=== PATIENT | female | born 1990 | race Caucasian/White ===

== ENCOUNTER 2019-11-25 15:15 | Inpatient (IN) | payer OTHER ==
[2019-11-25] MEDS ORDERED: CITRIC ACID/SODIUM CITRATE 30 ML UNIT-DOSE CUP PO ONE (15:55)
[2019-11-25] MEDS ORDERED: BENZOCAINE 28 GM HEMORRHOIDAL OINTMENT RC PRN (15:57)
[2019-11-25] MEDS ORDERED: diphenhydrAMINE HCL 25 MG CAPSULE (FP) PO PRN (15:57)
[2019-11-25] MEDS ORDERED: METHYLERGONOVINE MALEATE 0.2 MG/1 ML AMP IM PRN (15:57)
[2019-11-25] MEDS ORDERED: BENZOCAINE 20% 57 GM BOTTLE TP PRN (15:57)
[2019-11-25] MEDS ORDERED: IBUPROFEN 800 MG/8 ML IJ IVPB PRN (15:57)
[2019-11-25] MEDS ORDERED: ACETAMINOPHEN 325 MG TABLET (FP) PO PRN (15:57)
[2019-11-25] MEDS ORDERED: WITCH HAZEL 50% (TUCKS) 40 PAD/JAR PAD TP PRN (15:57)
[2019-11-25] MEDS ORDERED: ELECTROLYTE-148 SOLN 1,000 ML IV SCH (16:00)
[2019-11-25] MEDS ORDERED: OXYTOCIN 20 UNITS in 0.9% NS 20 UNIT/1,000 ML INFUS.BAG IV SCH (16:00)
--- NOTE | 2019-11-25 16:16 | HP ---
Past Medical History - Primary Care Physician PCP:: Chayo William - Admission Chief Complaint: Spontaneous rupture of membranes. breech. iup at 40 week History of Present Illness: 29 yo PO with Crescencio Breech position for primary section with spontaneous rupture of membranes and active labor History Source: Patient Limitations to Obtaining History: No Limitations - Past Medical History ...: 4 ...Para: 0 ...Spon : 1 ...Induced : 2 - Past Surgical History Hx Myomectomy: No Hx Transabdominal Cerclage: No Additional Surgical History: Ectopic - Smoking History Smoking history: Never smoked Have you smoked in the past 12 months: No Aproximately how many cigarettes per day: 0 - Alcohol/Substance Use Hx Alcohol Use: No History of Substance Use: reports: None - Social History History of Recent Travel: No Home Medications - Allergies Allergies/Adverse Reactions: Allergies Allergy/AdvReac Type Severity Reaction Status Date / Time No Known Allergies Allergy Verified 11/25/19 16:46 - Home Medications Home Medications: Ambulatory Orders Vitamins (Sjr) - 1 tab PO DAILY 11/25/19 Review of Systems - Review of Systems Constitutional: reports: No Symptoms Eyes: reports: No Symptoms HENT: reports: No Symptoms Neck: reports: No Symptoms Cardiovascular: reports: No Symptoms Respiratory: reports: No Symptoms Gastrointestinal: reports: Abdominal Pain Genitourinary: reports: No Symptoms Breasts: reports: No Symptoms Reported Musculoskeletal: reports: No Symptoms Integumentary: reports: No Symptoms Neurological: reports: No Symptoms Endocrine: reports: No Symptoms Hematology/Lymphatic: reports: No Symptoms Psychiatric: reports: No Symptoms Problem List - Problems (1) Breech presentation of fetus Code(s): O32.1XX0 - MATERNAL CARE FOR BREECH PRESENTATION, UNSP (2) 39 weeks gestation of Code(s): Z3A.39 - 39 WEEKS GESTATION OF (3) Labor and delivery affected by breech presentation Code(s): O32.1XX0 - MATERNAL CARE FOR BREECH PRESENTATION, UNSP Assessment/Plan iup at 39 week breech in labor srom Plan Section
[2019-11-25] MEDS ORDERED: morphine SULFATE/Preservative Free 0.5 MG/ML (1cc Syringe) ONE (17:24)
[2019-11-25] MEDS ORDERED: MIDAZOLAM HCL 2 MG/2 ML SINGLE DOSE VIAL ONE (17:37)
--- NOTE | 2019-11-25 18:46 | OP ---
Operative Note - Note: Operative Date: 11/25/19 Pre-Operative Diagnosis: Michaelle Breech. spontaneous rupture of membranes. IUP at 39.3 week. Active Labor Operation: Primary Low Transverse Section Findings: Live female michaelle breech Post-Operative Diagnosis: Same as Pre-op Surgeon: Chayo William Sales Service Route Manager: Charlie Frost Anesthesia: Spinal Estimated Blood Loss (mls): 600 Operative Report Dictated: Yes
[2019-11-25 18:56] LABS: CORD BASE EXCESS -2.6 mmol/L (0-2); CORD BASE EXCESS -3.2 mmol/L (0-2); CORD HCO3 23.6 mmHg (20-29); CORD HCO3 23.9 mmHg (20-29); CORD PCO2 45.8 mmHg (30-78); CORD PCO2 50.8 mmHg (30-78); CORD pH 7.291 (7.14-7.44); CORD pH 7.33 (7.14-7.44)
[2019-11-25 19:02] VITALS: BMI 30.7
[2019-11-25] MEDS ORDERED: OXYTOCIN 20 UNITS in 0.9% NS 20 UNIT/1,000 ML INFUS.BAG IV ONE (19:15)
[2019-11-25 19:30] LABS: BASO % 0.2 % (0-2.0); EOS % 0.2 % (0-4.5); HEMATOCRIT 36.9 % (32.4-45.2); HEMOGLOBIN 12.1 GM/dL (10.7-15.3); LYMPH % 16.6 % (8-40); MCH 28.8 pg (25.7-33.7); MCHC 32.9 g/dl (32.0-36.0); MEAN CELL VOLUME 87.6 fl (80-96); MEAN PLT VOLUME 12.1 fl (7.5-11.1); MONO % 5.6 % (3.8-10.2); NEUT % 77.4 % (42.8-82.8); PLATELET COUNT 85 K/MM3 (134-434); RBC 4.21 M/mm3 (3.60-5.2); RDW 14.3 % (11.6-15.6); WHITE BLOOD COUNT 11.1 K/mm3 (4.0-10.0)
[2019-11-25 19:41] LABS: INR 0.96 (0.83-1.09); PROTHROMBIN TIME (PATIENT) 11.3 SEC (9.7-13.0)
[2019-11-25 19:44] LABS: ACTIVATED PTT 24.9 SECONDS (25.2-36.5)
[2019-11-25 19:47] LABS: BLOOD UREA NITROGEN 9.6 mg/dL (7-18); CREATININE 0.6 mg/dL (0.55-1.3); POTASSIUM 3.9 mmol/L (3.5-5.1)
--- NOTE | 2019-11-26 07:47 | PN ---
Progress Note (SOAP) - Subjective Chief Complaint: Pt doing well - Current Medications Current Medications: Active Medications Acetaminophen (Tylenol -) 650 mg PO Q4H PRN PRN Reason: FEVER Benzocaine (Americaine 20% [place] -) 1 spray TP PRN PRN PRN Reason: Pain - Topical Benzocaine (Americaine Ointment -) 1 applic RC PRN PRN PRN Reason: Pain - Topical Bisacodyl (Dulcolax Suppository -) 10 mg MA PRN PRN PRN Reason: CONSTIPATION Diphenhydramine HCl (Benadryl -) 25 mg PO Q6H PRN PRN Reason: FOR ITCHING Hydromorphone HCl (Dilaudid -) 4 mg PO Q4H PRN PRN Reason: PAIN LEVEL 7 - 10 Stop: 11/27/19 09:59 Parenteral Electrolytes (Plasma-Lyte 148 -) 1,000 mls @ 125 mls/hr IV [facility] Last Admin: 11/25/19 15:45 Dose: 125 mls/hr Documented by: Oxytocin/Sodium Chloride (Normal Saline+20 Units Oxytocin -) 20 unit in 1,000 mls @ 125 mls/hr IV [facility] Last Admin: 11/25/19 19:00 Dose: 125 mls/hr Documented by: Ibuprofen (Motrin -) 600 mg PO Q4H PRN PRN Reason: FEVER Ibuprofen (Caldolor Injection -) 800 mg IVPB Q6H PRN PRN Reason: Fever - If PO not effective. Methylergonovine Maleate (Methergine Injection -) 0.2 mg IM Q4H PRN PRN Reason: EXCESSIVE BLEEDING Oxycodone HCl (Roxicodone -) 5 mg PO Q4H PRN PRN Reason: PAIN LEVEL 1 - 3 Oxycodone HCl (Roxicodone -) 10 mg PO Q4H PRN PRN Reason: PAIN LEVEL 6-10 Senna/Docusate Sodium (Pericolace -) 2 tablet PO HS PRN PRN Reason: CONSTIPATION Simethicone (Mylicon -) 80 mg PO Q4H PRN PRN Reason: GAS Witch Umu/Glycerin (Tucks Pads -) 1 pad TP PRN PRN PRN Reason: Pain - Topical - Objective Vital Signs: Vital Signs Temperature 98.3 F 11/26/19 06:00 Pulse Rate 78 11/26/19 06:00 Respiratory Rate 18 11/26/19 06:00 Blood Pressure 118/68 11/26/19 06:00 O2 Sat by Pulse Oximetry (%) 980 H 11/25/19 20:00 Constitutional: Yes: Well Nourished, No Distress Gastrointestinal: Yes: WNL, Soft, Abdomen, Obese ....Post : Yes: Uterus firm, Uterus non-tender Musculoskeletal: Yes: WNL Extremities: Yes: WNL Wound/Incision: Yes: Steri Strips, Dressing Removed Neurological: Yes: WNL, Alert, Oriented Labs Lab Results: CBCD WBC 11.1 K/mm3 (4.0-10.0) H 11/25/19 19:00 RBC 4.21 M/mm3 (3.60-5.2) 11/25/19 19:00 Hgb 12.1 GM/dL (10.7-15.3) 11/25/19 19:00 Hct 36.9 % (32.4-45.2) 11/25/19 19:00 MCV 87.6 fl (80-96) 11/25/19 19:00 MCHC 32.9 g/dl (32.0-36.0) 11/25/19 19:00 RDW 14.3 % (11.6-15.6) 11/25/19 19:00 Plt Count 85 K/MM3 (134-434) L 11/25/19 19:00 MPV 12.1 fl (7.5-11.1) H 11/25/19 19:00 CMP Sodium 141 mmol/L (136-145) 11/25/19 19:00 Potassium 3.9 mmol/L (3.5-5.1) 11/25/19 19:00 Chloride 108 mmol/L (98-107) H 11/25/19 19:00 Carbon Dioxide 23 mmol/L (21-32) 11/25/19 19:00 Anion Gap 11 MMOL/L (8-16) 11/25/19 19:00 BUN 9.6 mg/dL (7-18) 11/25/19 19:00 Creatinine 0.6 mg/dL (0.55-1.3) 11/25/19 19:00 Random Glucose 76 mg/dL (74-106) 11/25/19 19:00 Calcium 9.0 mg/dL (8.5-10.1) 11/25/19 19:00 Problem List - Problems (1) Breech presentation of fetus Code(s): O32.1XX0 - MATERNAL CARE FOR BREECH PRESENTATION, UNSP (2) 39 weeks gestation of Code(s): Z3A.39 - 39 WEEKS GESTATION OF (3) Labor and delivery affected by breech presentation Problems reviewed: Yes Code(s): O32.1XX0 - MATERNAL CARE FOR BREECH PRESENTATION, UNSP (4) Status post primary low transverse section Problems reviewed: Yes Code(s): Z98.891 - HISTORY OF UTERINE SCAR FROM PREVIOUS SURGERY Assessment/Plan POD 1 SP CS Stable Plan OOB DC home in AM if stable
--- NOTE | 2019-11-26 08:03 | PN ---
Progress Note (short form) - Note Progress Note: Anesthesia Post op/pain Pt seen and examined S:Alert and awake comfortable O: Vital Signs Temperature 98.3 F 11/26/19 06:00 Pulse Rate 78 11/26/19 06:00 Respiratory Rate 18 11/26/19 06:00 Blood Pressure 118/68 11/26/19 06:00 O2 Sat by Pulse Oximetry (%) 980 H 11/25/19 20:00 CBC, BMP 11/25/19 19:00 11/25/19 19:00 Current Active Problems 39 weeks gestation of (Acute) Breech presentation of fetus (Acute) Labor and delivery affected by breech presentation (Acute) Status post primary low transverse section (Acute) A/P: s/p c section Doing well post op Continue current care Ashwin Jerez MD
[2019-11-26 08:31] LABS: HEMATOCRIT 33.1 % (32.4-45.2); HEMOGLOBIN 11.1 GM/dL (10.7-15.3); MCH 29.4 pg (25.7-33.7); MCHC 33.5 g/dl (32.0-36.0); MEAN CELL VOLUME 87.6 fl (80-96); MEAN PLT VOLUME 11.8 fl (7.5-11.1); PLATELET COUNT 68 K/MM3 (134-434); RBC 3.78 M/mm3 (3.60-5.2); RDW 14.2 % (11.6-15.6)
[2019-11-26] MEDS ORDERED: HYDROmorphone HCL 2 MG TABLET PO PRN (10:00)
[2019-11-26] MEDS ORDERED: oxyCODONE HCL 5 MG TABLET PO PRN (10:00)
[2019-11-26] MEDS: IBUPROFEN 600 MG TABLET (FP) PO PRN ×3 (11:13→23:42)
[2019-11-26] MEDS: SIMETHICONE 80 MG TAB.CHEW (FP) PO PRN ×2 (15:22→23:37)
[2019-11-26] MEDS ORDERED: BISACODYL 10 MG SUPP.RECT PR PRN (15:57)
--- NOTE | 2019-11-26 16:34 | OP ---
DATE OF OPERATION: 11/25/2019 PREOPERATIVE DIAGNOSIS: Michaelle breech, spontaneous rupture of membranes, intrauterine at 39.3 weeks, active labor. OPERATION: Primary low transverse section. POSTOPERATIVE DIAGNOSIS: Live female delivered in michaelle breech position. Michaelle breech, spontaneous rupture of membranes, intrauterine at 39.3 weeks, active labor. SURGEON: Frandy William MD. ORTHOPEDICALLY IMPAIRED TEACHER: JOI King. MD unavailable. ANESTHESIA: Spinal. ESTIMATED BLOOD LOSS: 600 mL. PROCEDURE: Patient was taken to the operating room, placed in supine position. Prepped and draped in usual sterile fashion. Timeout was performed in accordance with hospital regulation. A Pfannenstiel skin incision was made with the scalpel. Cautery was then used to go through layers of abdominal wall to the level of the fascia. Fascia was cut in the midline and cautery was then used to open the fascia in a smiley fashion. Ernie was then used to bluntly and sharply dissect the rectus muscles off the fascia. Muscle was split in the midline. Peritoneal cavity was entered and carried up and down with bladder retractor in placed. Scalpel was then used to make a low transverse uterine incision. Incision was carried upwards with the use of bandage scissors. A michaelle breech live female infant was delivered. Shoulders were delivered without difficulty. Head was also delivered without difficulty. Cord was clamped and cut. Infant was handed to behavior clinician. Cord blood obtained. Cord pH obtained. Placenta was spontaneously removed from uterus. Uterus exteriorized and cleaned with clean lap pads. Uterine incision then closed using 0 Vicryl suture, 1st layer continuous and locking, 2nd layer imbricating 1st layer. Hemostasis was achieved using [id number] sutures. Tubes and ovaries noted to be normal. Uterus interiorized. Abdominal cavity cleaned with clean lap pads. Abdominal sweep done. Peritoneal cavity was then closed using 0 Biosyn suture . Fascia then closed using 0 Vicryl sutures in 2 parts. Muscle had been approximated using 0 Biosyn suture. Subcutaneous was approximated using 0 Biosyn suture with interrupted sutures. Skin was then closed using 3-0 Vicryl in subcuticular fashion. The wound was washed and dressed. Patient tolerated procedure well. Estimated blood loss 600 mL. FRANDY WILLIAM M.D. DEREK/[id number]
[2019-11-26] MEDS: oxyCODONE HCL 5 MG TABLET PO PRN (23:38)
[2019-11-27] MEDS: IBUPROFEN 600 MG TABLET (FP) PO PRN ×2 (07:49→12:27)
[2019-11-27] MEDS: SIMETHICONE 80 MG TAB.CHEW (FP) PO PRN ×2 (07:50→12:26)
[2019-11-27] MEDS: oxyCODONE HCL 5 MG TABLET PO PRN ×2 (07:50→12:27)
--- NOTE | 2019-11-27 08:26 | DS ---
Physical Exam-AIR BRUSH DECORATOR Vital Signs: Vital Signs Temperature 98.6 F 11/26/19 22:00 Pulse Rate 96 H 11/26/19 22:00 Respiratory Rate 18 11/26/19 22:00 Blood Pressure 122/79 11/26/19 22:00 O2 Sat by Pulse Oximetry (%) 95 11/26/19 14:00 Constitutional: Yes: Well Nourished Eyes: Yes: Conjunctiva Clear HENT: Yes: Atraumatic Neck: Yes: Supple Cardiovascular: Yes: Regular Rate and Rhythm Respiratory: Yes: Regular Gastrointestinal: Yes: Normal Bowel Sounds External Genitalia: Yes: Normal Vaginal Exam: Yes: Normal Cervix: Yes: Normal Uterus: Yes: Firm ....Post : Yes: Uterus firm, Slight lochia rubra Wound/Incision: Yes: Well Approximated, Steri Strips (in place) Neurological: Yes: Alert, Oriented ...Motor Strength: WNL Psychiatric: Yes: Alert, Oriented Labs: CBC, BMP 11/26/19 07:55 11/25/19 19:00 Delivery - Delivery Type of Anesthesia: Spinal EBL (cc): 600 Delivery, Single - Stages of Labor Date 1st Stage Initiatied: 11/25/19 Time 1st Stage Initiated: 15:00 Date of Delivery: 11/25/19 Time of Delivery: 17:46 Time Placenta Delivered: 17:50 - Condition of Infant Food Service Representative/Car Shakeout Operator Present: Yes Name: Eric Hightower Infant Gender: Female Weight: 7 lb 3 oz Total Hours ROM (Hrs/Mins): 3Hrs/50Mins - 1 Minute Total Score: 9 5 Minutes Total Score: 9 - [place] Feeding Plan Initial Plan: Exclusive throughout hospitalization Discharge Summary Problems reviewed: Yes Reason For Visit: Current Active Problems 39 weeks gestation of (Acute) Breech presentation of fetus (Acute) Labor and delivery affected by breech presentation (Acute) Status post primary low transverse section (Acute) Procedures: Principal: Primary Low Transverse Hospital Course: Routine post op care Health Concerns: None Plan of Treatment: Ambulation Analgesia as needed F/U with MD in 2 weeks Goals: Resume regular activities in 6 weeks Condition: Good - Instructions Diet, Activity, Other Instructions: Physical activity Resume your normal everyday activity as tolerated no heavy lifting or exercise until seen by your surgeon. You may walk unlimited bere of and climb stairs. You may resume driving the car when you feel safe and comfortable behind the wheel. No sexual activity as instructed. Wound care If you have a bandage, leave it on, and keep dry for 48-72 hours. After that time discard the outer bandage. If they are tapes on the skin under the out of bandage leave them in place. They will peel off in the next 7 to 10 days. Do Not Peel them off. You may shower the day after surgery. If there are tapes present on the skin, you may shower over them. Diet There are no dietary restrictions. Eat healthy, high-fiber foods. Drink 6 to 8 glasses of liquid each day. This will assist in keeping your bowels are regular. Pain management You may take Tylenol or acetaminophen or Ibuprofen (for example, Motrin, Advil etc.) from my pain prescription medication is ordered should be taken as prescribed for moderate to severe pain. Call MD for any of the following: Severe pain not relieved by medication Fever of 101 or higher Excessive bleeding or drainage on dressing Inability to urinate Disposition: HOME - Home Medications Comprehensive Discharge Medication List: Ambulatory Orders Vitamins (Sjr) - 1 tab PO DAILY 11/25/19 Ibuprofen [Motrin -] 600 mg PO QID #28 tablet 11/26/19 Oxycodone HCl/Acetaminophen [Percocet 5-325 mg Tablet] 2 tab PO Q4H #20 tablet MDD 6 11/26/19
[2019-11-27 09:57] VITALS: BP 132/82; PULSE 105; TEMP 98.5
[2019-11-27] MEDS ORDERED: SENNOSIDES/DOCUSATE COMBO (SENNA PLUS) TABLET (UD) PO PRN (22:00)
--- NOTE | 2019-12-01 16:32 | PATH ---
Surgical Pathology Report Patient Name: XIN PAYAN Med. Rec. #: [id number] /Age/Gender: 1990 (Age: 29) / F Account: [id number] Location: [facility] OBS/GAME DESIGNER/CREATIVE DIRECTOR Taken: 11/25/2019 Received: 11/26/2019 Reported: 12/01/2019 Physicians: Chayo William M.D. Specimen(s) Received PLACENTA Clinical History , 39.6 weeks Final Diagnosis PLACENTA, SECTION: 373 G THIRD TRIMESTER PLACENTA WITH TRIVASCULAR UMBILICAL CORD AND UNREMARKABLE PLACENTAL MEMBRANES. Electronically Signed Josi Hernandez M.D. Gross Description The specimen is received fresh labeled placenta and is a 373 gram, 16.0 x 13.5 x 3.0 cm. placenta with attached membranes and umbilical cord. The attached membranes are malin, translucent with focal opacities and insert marginally. The umbilical cord measures 2.5 cm. in length and averages 1 cm. in diameter. The cord inserts eccentrically, 5 cm. to the nearest margin. No true knots or strictures are identified. Cut surface of the umbilical cord reveals 3 vessels. The surface is ariza-blue with minimal fibrin deposition and appropriate caliber vessels. The maternal surface is red-brown with focal defects. Sectioning reveals red-brown, spongy parenchyma. No lesions are identified. Brush Worker sections are submitted in three cassettes as follows: 1- membrane rolls and umbilical cord; 2-3- full thickness sections of placenta. 11/30/[address] [facility]11/30/2019
== END 2019-11-27 15:25 | disposition home or self-care (01) | DRG 540 ==
LOC: JLDR 15:15 → J3W 20:00
PROVIDERS: ADMIT Obstetrics & Gynecology; ATTEND Obstetrics & Gynecology
PROC: 10D00Z1 Extraction of Products of Conception, Low, Open Approach (ICD-10-PCS; principal; 2019-11-25)
DX: O82 Encounter for cesarean delivery without indication (principal); O32.1XX0 Maternal care for breech presentation, not applicable or unspecified; O42.013 Preterm premature rupture of membranes, onset of labor within 24 hours of rupture, third trimester; Z3A.39 39 weeks gestation of pregnancy; Z37.0 Single live birth; Z98.891 History of uterine scar from previous surgery
CPT/HCPCS: 36415; 36600; 80048; 82803; 85025; 85027; 85610; 85730; 86762; 86850; 86900; 86901; 87340; 87389; 88307-TC; U0003

== ENCOUNTER 2019-11-28 11:58 | Inpatient (IN) | payer OTHER ==
--- NOTE | 2019-11-28 12:24 | PDOC ---
Attending Attestation - Resident Resident Name: Uvaldo Cabral - ED Attending Attestation I have performed the following: I have examined & evaluated the patient, The case was reviewed & discussed with the resident, I agree w/resident's findings & plan, Exceptions are as noted - HPI HPI: 11/28/19 12:22 29YOF who is POD#[address] William who p/w about 24 hours worsening SOB, now with inability to lay down flat d/t SOB, also with rapid heart rate. She notes chest pain as well as non-productive cough. Also mild lower abdominal pain which she notes is no different from immediately post-op. Discharge - Follow up/Referral Referrals: Georgiana Murillo MD [Primary Care Provider] - - Patient Discharge Instructions - Post Discharge Activity
[2019-11-28 12:36] LABS: BASO % 0.3 % (0-2.0); EOS % 0.6 % (0-4.5); HEMATOCRIT 33.5 % (32.4-45.2); HEMOGLOBIN 11.3 GM/dL (10.7-15.3); LYMPH % 13.8 % (8-40); MCH 29.1 pg (25.7-33.7); MCHC 33.6 g/dl (32.0-36.0); MEAN CELL VOLUME 86.6 fl (80-96); MEAN PLT VOLUME 10.6 fl (7.5-11.1); MONO % 4.2 % (3.8-10.2); NEUT % 81.1 % (42.8-82.8); PLATELET COUNT 120 K/MM3 (134-434); RBC 3.87 M/mm3 (3.60-5.2); RDW 14.4 % (11.6-15.6); WHITE BLOOD COUNT 10.3 K/mm3 (4.0-10.0)
[2019-11-28 12:43] LABS: INR 0.92 (0.83-1.09); PROTHROMBIN TIME (PATIENT) 10.8 SEC (9.7-13.0)
--- NOTE | 2019-11-28 13:06 | PDOC ---
Documentation entered by Lissette Castellanos SCRIBE, acting as scribe for Elaina Bearden MD. Elaina Bearden MD: This documentation has been prepared by the Emanuel bhagat Brenda, SCRIBE, under my direction and personally reviewed by me in its entirety. I confirm that the documentation accurately reflects all work, treatment, procedures, and medical decision making performed by me. Attending Attestation - Resident Resident Name: Uvaldo Cabral - ED Attending Attestation I have performed the following: I have examined & evaluated the patient, The case was reviewed & discussed with the resident, I agree w/resident's findings & plan, Exceptions are as noted - HPI HPI: 11/28/19 12:24 29YOF, , who is POD#[address] William who p/w about 24 hours worsening SOB, now with inability to lay down flat d/t SOB, also with rapid heart rate. She notes substernal chest pain worse with inpspiration, as well as non-productive cough. Also mild lower abdominal pain which she notes is no different from immediately post-op. She denies any n/v/d/c, f/c, leg pain/swelling, or other symptoms. She notes her own mother had a h/o PE within days of giving . - Physicial Exam PE: 11/28/19 12:25 GENERAL: nontoxic-appearing, A/Ox4, mild distress d/t SOB, answers questions appropriately, anxious, significant other at bedside HEENT: PERRLA, EOMI, moist mucous membranes NECK/BACK: no midline ttp, no spinal stepoff or deformity, no hematoma, full ROM, neck supple CARDIOVASCULAR: rapid regular rate, no MGR, strong peripheral pulses, capillary refill <2 seconds, extremities wwp, trace pitting edema LUNGS/RESPIRATORY: tachypneic, lungs CTAB GI/ABDOMEN: abdomen is gravid, symmetric [id number], normoactive BS, soft, mild ttp suprapubic region, LTCS scar CDI, no midline pulsatile masses : no CVA tenderness MSK/EXTREMITIES: no muscle atrophy, no acute deformity SKIN: warm and dry, no pallor, no jaundice, no rash, no pathologic-appearing bruising, no skin breakdown, no cuts, no lesions NEUROLOGICAL: GCS 15, CN II-XII grossly intact, 5/5 strength proximally and distally, no facial droop - Critical Care Time Total Critical Care Time: 45 Critical Care Statement: The care of this patient involved high complexity decision making to prevent further life threatening deterioration of the patient's condition and/or to evaluate & treat vital organ system(s) failure or risk of failure. - Medical Decision Making 11/28/19 12:29 29YOF who is POD#2 from LTCS who presents with SOB and orthopnea and chest discomfort. Initial Vital Signs Temp Pulse Resp BP Pulse Ox 97.8 F 119 H 26 H 126/87 95 11/28/19 12:11/28/19 12:11/28/19 12:11/28/19 12:11/28/19 12:01 DDX IBNLT: peripartum cardiomyopathy, PE, ACS i.e. SCAD, pulmonary edema, anemia, pericarditis, etc. W/U ordered: Labs, CXR, EKG, Chest CTA TX ordered: unfractionated heparin bolus & drip POCUS with severe LV dilatation and LAE, mild SELVIN. Most likely peripartum cardiomyopathy however given that we are unable to obtain chest CTA will treat for PE as well, especially given that there is higher risk for VTE with periparum cardiomyopathy anyway. CXR shows enlarged heart and moderate vascular congestion. Patient is unable to tolerate laying flat on CT table fo chest CTA after many attempts, tried BiPAP as well while laying flat and this did not help. BP at this time is 138/83, HR 109, SpO2 96% on 5 LMP via nasal cannula, RR 22. 11/28/19 11/28/19 11/28/19 12:21 12:21 12:21 PT with INR 10.80 INR 0.92 PTT (Actin FS) 26.0 Sodium 140 Potassium 4.0 Chloride 108 H Carbon Dioxide 21 Anion Gap 11 BUN 12.9 Creatinine 0.7 Est GFR (CKD-EPI)AfAm 134.75 Est GFR (CKD-EPI)NonAf 116.26 Random Glucose 88 Calcium 8.4 L Phosphorus 4.0 Magnesium 2.0 Total Bilirubin 0.5 AST 28 ALT 26 Alkaline Phosphatase 94 Troponin I < 0.02 B-Natriuretic Peptide 704.1 H Total Protein 6.1 L Albumin 2.5 L 11/28/19 12:21 PT with INR INR PTT (Actin FS) Sodium Potassium Chloride Carbon Dioxide Anion Gap BUN Creatinine Est GFR (CKD-EPI)AfAm Est GFR (CKD-EPI)NonAf Random Glucose Calcium Phosphorus Cancelled Magnesium Total Bilirubin AST ALT Alkaline Phosphatase Troponin I B-Natriuretic Peptide Total Protein Albumin 11/28/19 12:21 RBC 3.87 MCV 86.6 MCHC 33.6 RDW 14.4 MPV 10.6 D Neutrophils % 81.1 Lymphocytes % 13.8 Monocytes % 4.2 Eosinophils % 0.6 D Basophils % 0.3 The Pt is unsafe for discharge at this time. They require further hospital observation, workup, and treatment. Will admit to [facility] to telemetry, also giving heparin. Heart Score/ECG Review #1 11/28/19 12:17 Sinus rhythm, rate 109, normal axis and inervals, possible biatrial enlargement pattern? No ST-T changes Discharge - Discharge Information Problems reviewed: Yes Clinical Impression/Diagnosis: SOB (shortness of breath), Peripartum cardiomyopathy Condition: Guarded - Admission Yes - Follow up/Referral Referrals: Georgiana Murillo MD [Primary Care Provider] - - Patient Discharge Instructions - Post Discharge Activity
[2019-11-28 13:07] LABS: ALBUMIN 2.5 g/dl (3.4-5.0); BILIRUBIN,TOTAL 0.5 mg/dL (0.2-1); BLOOD UREA NITROGEN 12.9 mg/dL (7-18); CALCIUM 8.4 mg/dL (8.5-10.1); CREATININE 0.7 mg/dL (0.55-1.3); N-TERMINAL BNP 704.1 pg/ml (5-125); TOT PROT 6.1 g/dl (6.4-8.2)
[2019-11-28] MEDS ORDERED: HEPARIN NA (PORCINE) 5,000 UNITS/ML 1ML VIAL IVPUSH PRN ×2 (13:46)
[2019-11-28] MEDS ORDERED: HEPARIN NA (PORCINE) 5,000 UNITS/ML 1ML VIAL IVPUSH ONE (13:56)
[2019-11-28] MEDS ORDERED: HEPARIN INFUSION - 25,000 UNITS/500 ML INFUS.BAG IVPB ONE (13:57)
[2019-11-28] MEDS ORDERED: HEPARIN NA (PORCINE) 5,000 UNITS/ML 1ML VIAL ONE (13:58)
--- NOTE | 2019-11-28 14:00 | PDOC ---
History of Present Illness - General Chief Complaint: Shortness of Breath Stated Complaint: SHORTNESS OF BREATH Time Seen by Provider: 11/28/19 12:08 - History of Present Illness Initial Comments: 29 YOF s/p 3 days prior to arrival presents with SOB and orthopnea. Patient reports that upon discharge from L and D yesterday she began to feel short of breath, particularly when attempting to lie flat on her back. Her symptoms persisted until this morning when she spoke to Dr. Trujillo, her OBGYN, who advised her to present to the ED for evaluation. Upon arrival patient reports significant SOB and some accompanying CP as well as bilateral leg swelling. Denies N/V/D, fever or chills. 11/28/19 14:02 11/28/19 14:05 Past History - Medical History Allergies/Adverse Reactions: Allergies Allergy/AdvReac Type Severity Reaction Status Date / Time No Known Allergies Allergy Verified 11/25/19 16:46 Home Medications: Ambulatory Orders Vitamins (Sjr) - 1 tab PO DAILY 11/25/19 Ibuprofen [Motrin -] 600 mg PO QID #28 tablet 11/26/19 Oxycodone HCl/Acetaminophen [Percocet 5-325 mg Tablet] 2 tab PO Q4H #20 tablet MDD 6 11/26/19 Asthma: No Cancer: No Cardiac Disorders: No COPD: No Diabetes: No HTN: No Seizures: No Thyroid Disease: No - Surgical History Abdominal Surgery: Yes (c section 11/25/19) - Psycho-Social/Smoking History Smoking Status: No Smoking History: Never smoked Have you smoked in the past 12 months: No Number of Cigarettes Smoked Daily: 0 - Substance Abuse Hx (Audit-C & DAST Scrn) How often the patient has a drink containing alcohol: Never Score: In Men: 4 or > Positive; In Women: 3 or > Positive: 0 Screen Result (Pos requires Nsg. Audit-10AR): Negative In the last yr the pt used illegal drug/Rx for NonMed reason: No Score: Yes response is considered Positive: 0 Screen Result (Positive result requires Nsg. DAST-10): Negative Review of Systems - Review of Systems Constitutional: Yes: See HPI HEENTM: Yes: See HPI Respiratory: Yes: See HPI Cardiac (ROS): Yes: See HPI ABD/GI: Yes: See HPI : Yes: See HPI Musculoskeletal: Yes: See HPI Integumentary: Yes: See HPI Neurological: Yes: See HPI Endocrine: Yes: See HPI Hematologic/Lymphatic: Yes: See HPI *Physical Exam - Vital Signs Last Vital Signs Temp Pulse Resp BP Pulse Ox 97.8 F 119 H 26 H 126/87 96 11/28/19 12:01 11/28/19 12:01 11/28/19 12:01 11/28/19 12:01 11/28/19 12:33 - Physical Exam General Appearance: Yes: Nourished, Appropriately Dressed, Moderate Distress Respiratory/Chest: positive: Lungs Clear, Normal Breath Sounds Cardiovascular: positive: S1, S2, Edema, Tachycardia ED Treatment Course - LABORATORY CBC & Chemistry Diagram: 11/28/19 12:21 11/28/19 12:21 - ADDITIONAL ORDERS Additional order review: Laboratory Results 11/28/19 11/28/19 11/28/19 12:21 12:21 12:21 PT with INR 10.80 INR 0.92 PTT (Actin FS) 26.0 Sodium 140 Potassium 4.0 Chloride 108 H Carbon Dioxide 21 Anion Gap 11 BUN 12.9 Creatinine 0.7 Est GFR (CKD-EPI)AfAm 134.75 Est GFR (CKD-EPI)NonAf 116.26 Random Glucose 88 Calcium 8.4 L Phosphorus 4.0 Magnesium 2.0 Total Bilirubin 0.5 AST 28 ALT 26 Alkaline Phosphatase 94 Troponin I < 0.02 B-Natriuretic Peptide 704.1 H Total Protein 6.1 L Albumin 2.5 L 11/28/19 12:21 PT with INR INR PTT (Actin FS) Sodium Potassium Chloride Carbon Dioxide Anion Gap BUN Creatinine Est GFR (CKD-EPI)AfAm Est GFR (CKD-EPI)NonAf Random Glucose Calcium Phosphorus Cancelled Magnesium Total Bilirubin AST ALT Alkaline Phosphatase Troponin I B-Natriuretic Peptide Total Protein Albumin 11/28/19 12:21 RBC 3.87 MCV 86.6 MCHC 33.6 RDW 14.4 MPV 10.6 D Neutrophils % 81.1 Lymphocytes % 13.8 Monocytes % 4.2 Eosinophils % 0.6 D Basophils % 0.3 Medical Decision Making - Medical Decision Making 29 YOF s/p 3 days prior to arrival presents with SOB and orthopnea. Patient reports that upon discharge from L and D yesterday she began to feel short of breath, particularly when attempting to lie flat on her back. Her symptoms persisted until this morning when she spoke to Dr. Trujillo, her OBGYN, who advised her to present to the ED for evaluation. Upon arrival patient reports significant SOB and some accompanying CP as well as bilateral leg swelling. Denies N/V/D, fever or chills. Patient was tachycardic and tachypneac on arrival with a pulse ox reading of 95% on room air. Physical exam revealed only minor swelling in bilateral legs. Wells score calculated to 6. ddx: PE, pleural effusion, [place], cardiomyopathy plan: EKG, CTA, CXR, cbc, cmp, BNP. Reassess: Patients EKG demonstrates sinus tachycardia, CXR revealing of pulmonary edema and cardiomegaly, POCUS revealing of significant left ventricular and left atrial enlargement, patient was unable to tolerate lying flat for CTA, will anti coagulate empirically and admit patient for Telemetry. Dispo: Admit patient to telemetry Discharge - Discharge Information Problems reviewed: Yes Clinical Impression/Diagnosis: SOB (shortness of breath), Peripartum cardiomyopathy Condition: Fair - Admission Yes - Follow up/Referral - Patient Discharge Instructions - Post Discharge Activity
[2019-11-28] MEDS: HEPARIN - 25,000 UNIT in SODIUM CHLORIDE 495 ML IV SCH (14:11)
[2019-11-28] MEDS ORDERED: ACETAMINOPHEN 1000 MG/100 ML VIAL (NON FORMULARY) IVPB ONE (14:20)
[2019-11-28] MEDS ORDERED: ACETAMINOPHEN INJECTION 100 ML IVPB ONE (14:33)
[2019-11-28] MEDS ORDERED: FUROSEMIDE 40 MG/4 ML INJECTABLE VIAL IVPUSH ONE (14:54)
--- NOTE | 2019-11-28 14:55 | EKG ---
Test Reason : Blood Pressure : / mmHG Vent. Rate : 109 BPM Atrial Rate : 109 BPM P-R Int : 150 ms QRS Dur : 070 ms QT Int : 324 ms P-R-T Axes : 029 019 047 degrees QTc Int : 436 ms SINUS TACHYCARDIA LEFT ATRIAL ENLARGEMENT ANTERIOR INFARCT , AGE UNDETERMINED ABNORMAL ECG NO PREVIOUS ECGS AVAILABLE Confirmed by ELENO BENNETT MD ([id number]) on 11/28/2019 2:54:58 PM Referred By: Confirmed By:ELENO BENNETT MD
[2019-11-28] MEDS ORDERED: FUROSEMIDE 40 MG/4 ML INJECTABLE VIAL ONE (15:15)
--- NOTE | 2019-11-28 15:15 | CON.CARD ---
Cardiology Consult (text) - Consultation Consultation Note: Called by ER resident, discussed case. 29 yo female 3d s/p C-sxn. Developed sob and marked orthopnea, sx's began (milder) on day of discharge from hospital. Too sob to lay flat for CTA in ER. sinus tach, normal sat 95% on RA. CXR reviewed with acute pulm edema pattern including cephalization of vasculature, prob small effusions. Cardiac silhouette obscured on right by more dense alveolar opacities sec to edema. Normotensive, normal renal function. Bedside echo in ER felt to show dilated LV with likely somewhat decreased contractility. EKG no LVH, + VENTURA, no ischemic changes. 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 Rec lasix 40 IV x 1 now, expect she will diurese briskly (as she is lasix-naive) and sob/tachycardia will improve. Will plan for now to complete echo on saturday, as this would not policy change clerk if she responds to lasix and shows no signs of hemodynamic compromise/shock. Defer nitrates for now, until can reassess BP post lasix bolus.
[2019-11-28] MEDS ORDERED: [UNRECOGNIZED DRUG - OTHER] PO SCH (15:30)
[2019-11-28] MEDS ORDERED: OXYCODONE HCL PO SCH (15:30)
[2019-11-28] MEDS ORDERED: ACETAMINOPHEN PO SCH (15:30)
--- NOTE | 2019-11-28 16:00 | PN ---
Teaching Attending Note Name of Resident: Waylon German ATTENDING PHYSICIAN STATEMENT I saw and evaluated the patient. I reviewed the resident's note and discussed the case with the resident. I agree with the resident's findings and plan as documented. SUBJECTIVE: Patient is on 2liter oxygen , feeling better. OBJECTIVE: Vital Signs Temperature 99.0 F 11/28/19 14:19 Pulse Rate 109 H 11/28/19 14:19 Respiratory Rate 30 H 11/28/19 14:19 Blood Pressure 138/83 11/28/19 14:19 O2 Sat by Pulse Oximetry (%) 96 11/28/19 14:19 pe: comfortably lying in bed, NAD, on oxygen. Chest: decreased BS BL Heart: S1S2 positive, mild tachycardia LE: pulses are positive CBCD WBC 10.3 K/mm3 (4.0-10.0) H 11/28/19 12:21 RBC 3.87 M/mm3 (3.60-5.2) 11/28/19 12:21 Hgb 11.3 GM/dL (10.7-15.3) 11/28/19 12:21 Hct 33.5 % (32.4-45.2) 11/28/19 12:21 MCV 86.6 fl (80-96) 11/28/19 12:21 MCHC 33.6 g/dl (32.0-36.0) 11/28/19 12:21 RDW 14.4 % (11.6-15.6) 11/28/19 12:21 Plt Count 120 K/MM3 (134-434) L D 11/28/19 12:21 MPV 10.6 fl (7.5-11.1) D 11/28/19 12:21 CMP Sodium 140 mmol/L (136-145) 11/28/19 12:21 Potassium 4.0 mmol/L (3.5-5.1) 11/28/19 12:21 Chloride 108 mmol/L (98-107) H 11/28/19 12:21 Carbon Dioxide 21 mmol/L (21-32) 11/28/19 12:21 Anion Gap 11 MMOL/L (8-16) 11/28/19 12:21 BUN 12.9 mg/dL (7-18) 11/28/19 12:21 Creatinine 0.7 mg/dL (0.55-1.3) 11/28/19 12:21 Random Glucose 88 mg/dL (74-106) 11/28/19 12:21 Calcium 8.4 mg/dL (8.5-10.1) L 11/28/19 12:21 Total Bilirubin 0.5 mg/dL (0.2-1) 11/28/19 12:21 AST 28 U/L (15-37) 11/28/19 12:21 ALT 26 U/L (13-61) 11/28/19 12:21 Alkaline Phosphatase 94 U/L (45-117) 11/28/19 12:21 Total Protein 6.1 g/dl (6.4-8.2) L 11/28/19 12:21 Albumin 2.5 g/dl (3.4-5.0) L 11/28/19 12:21 CARDIAC ENZYMES Troponin I < 0.02 ng/ml (0.00-0.05) 11/28/19 12:21 Current Medications Generic Name Dose Route Start Last Admin Trade Name Freq PRN Reason Stop Dose Admin Acetaminophen 1,000 mg 11/28/19 15:52 Ofirmev Injection - IVPB Q6H PRN PAIN LEVEL 1-5 Furosemide 40 mg 11/29/19 10:00 Lasix Injection - IVPUSH DAILY TITO Heparin Sodium (Porcine) 1,000 unit 11/28/19 13:46 Heparin - IVPUSH PRN PRN Heparin Heparin Sodium (Porcine) 5,000 unit 11/28/19 13:46 Heparin - IVPUSH PRN PRN Heparin Heparin Sodium (Porcine) 25, 500 mls @ 20 mls/hr 11/28/19 14:00 11/28/19 14: 11 000 unit/ Sodium Chloride IV 1,000 unit/hr TITR TITO 20 mls/hr Administration Protocol 1,000 UNIT/HR Home Medications Medication Instructions Recorded Vitamins (Sjr) - 1 tab PO DAILY 11/25/19 Ibuprofen [Motrin -] 600 mg PO QID #28 tablet 11/26/19 Oxycodone HCl/Acetaminophen 2 tab PO Q4H #20 tablet MDD 6 11/26/19 [Percocet 5-325 mg Tablet] cxr: BL CONGESTIVE CHANGES EKG: sinus tachy rate of 109, ant infarct age undetermined. no ST elevation or [id number] ASSESSMENT AND PLAN: # CM: lASIX 40MG IV, IS AND OS, TELE ADMISSION, 2 L NC KEEP SA02>93%, DAILY WEIGHT, ECHO, CARDIO CONSULT, 2 MORE SETS OF TROPS. EKG IN AM, CXR IN AM WILL HOLD cta FOR NOW, SINCE PATIENT IS NOT ABLE TO LAY FLAT, WILL GET DUPLEX OF LOWER EXTREMITIES TO R/O dvt #POD#4 S/P BY DR William. DVT Px: heparin sq
[2019-11-28] MEDS ORDERED: IBUPROFEN PO SCH (18:00)
--- NOTE | 2019-11-28 19:03 | HP ---
CHIEF COMPLAINT: shortness of breath PCP: HISTORY OF PRESENT ILLNESS: 29 y/o F s/p 3 days prior to arrival presents with SOB of 1 day duration that began spontaneously while patient was sleeping and has since worsened, with orthopnea and b/l leg swelling. Pt reports that she has been having abdominal pain, vaginal bleeding and mild shortness of breath since post but the shortness of breath came on more vigorously spontaenosuly during sleep. Pt did not take anything to relieve it. Sitting up improved her symptoms. Her symptoms persisted until this morning when she spoke to Dr. Trujillo, her OBGYN, who advised her to present to the ED for evaluation. In the ED patient reports significant SOB and some accompanying CP as well as bilateral leg swelling. Denies f/c/n/v/d/ diaphoresis, numbness or tingling, palpitations, changes in vision. ER course was notable for: (1) CTA was ordered but pt was orthopnea and CTA was deferred (2) Wells core reported by ED was 6, (3) Heparin drip was started empirically Recent Travel: PAST MEDICAL HISTORY: 2 abortions and 1 ectopic preg PAST SURGICAL HISTORY: 3 days ago Social History: Smoking: denies Alcohol: denies Drugs: denies Allergies No Known Allergies Allergy (Verified 11/25/19 16:46) HOME MEDICATIONS: Home Medications Medication Instructions Recorded Vitamins (Sjr) - 1 tab PO DAILY 11/25/19 Ibuprofen [Motrin -] 600 mg PO QID #28 tablet 11/26/19 Oxycodone HCl/Acetaminophen 2 tab PO Q4H #20 tablet MDD 6 11/26/19 [Percocet 5-325 mg Tablet] REVIEW OF SYSTEMS CONSTITUTIONAL: Absent: fever, chills, diaphoresis, generalized weakness, HEENT: Absent: rhinorrhea, nasal congestion, throat pain, visual changes CARDIOVASCULAR: Absent: chest pain, syncope, palpitations, irregular heart rate, RESPIRATORY: Admits: shortness of breath, dyspnea with exertion, orthopnea Absent: cough, wheezing, stridor, hemoptysis GASTROINTESTINAL: Admits: abdominal pain, abdominal distension, Absent: nausea, vomiting, diarrhea, constipation, melena, hematochezia GENITOURINARY: Admits: vaginal bleed- improving Absent: dysuria, frequency, urgency, NEUROLOGIC: Absent: headache, focal weakness or paresthesias, dizziness, unsteady gait, seizure PSYCHIATRIC: Absent: anxiety, PHYSICAL EXAMINATION Vital Signs - 24 hr 11/28/19 11/28/19 11/28/19 12:01 12:25 12:33 Temperature 97.8 F Pulse Rate 119 H Pulse Rate [ Left Radial] Respiratory 26 H Rate Blood Pressure 126/87 Blood Pressure [Right Arm] O2 Sat by Pulse 95 96 96 Oximetry (%) 11/28/19 14:19 Temperature 99.0 F Pulse Rate Pulse Rate [ 109 H Left Radial] Respiratory 30 H Rate Blood Pressure Blood Pressure 138/83 [Right Arm] O2 Sat by Pulse 96 Oximetry (%) GENERAL: Awake, alert, and fully oriented, in no acute distress. Anxious EYES: Pupils equal, round and reactive to light, extraocular movements intact, No lid lag. EARS, NOSE, THROAT: Moist mucous membranes. NECK: Normal range of motion, supple without lymphadenopathy, JVD, or masses. LUNGS: decreased breath sounds on left lung, b/l crackles lower lung bases HEART: Regular rate and rhythm, normal S1 and S2 without murmur, rub or gallop. ABDOMEN: Soft, tender, mildly distended, normoactive bowel sounds, no guarding, no rebound, no masses. Post changes MUSCULOSKELETAL: Normal range of motion at all joints. UPPER EXTREMITIES: 2+ pulses, warm, well-perfused. No cyanosis. No clubbing. No peripheral edema. LOWER EXTREMITIES: 2+ pulses, warm, well-perfused. No calf tenderness. B/l 2+ peripheral edema non-pitting. NEUROLOGICAL: Normal speech. Normal gait. PSYCHIATRIC: Cooperative. Good eye contact. Appropriate mood and affect. Laboratory Results - last 24 hr 11/28/19 11/28/19 11/28/19 12:21 12:21 12:21 WBC 10.3 H RBC 3.87 Hgb 11.3 Hct 33.5 MCV 86.6 MCH 29.1 MCHC 33.6 RDW 14.4 Plt Count 120 L D MPV 10.6 D Absolute Neuts (auto) 8.4 H Neutrophils % 81.1 Lymphocytes % 13.8 Monocytes % 4.2 Eosinophils % 0.6 D Basophils % 0.3 Nucleated RBC % 0 PT with INR 10.80 INR 0.92 PTT (Actin FS) 26.0 Sodium Potassium Chloride Carbon Dioxide Anion Gap BUN Creatinine Est GFR (CKD-EPI)AfAm Est GFR (CKD-EPI)NonAf POC Glucometer Random Glucose Calcium Phosphorus Cancelled Magnesium Total Bilirubin AST ALT Alkaline Phosphatase Troponin I B-Natriuretic Peptide Total Protein Albumin 11/28/19 11/28/19 11/28/19 12:21 12:21 17:04 WBC RBC Hgb Hct MCV MCH MCHC RDW Plt Count MPV Absolute Neuts (auto) Neutrophils % Lymphocytes % Monocytes % Eosinophils % Basophils % Nucleated RBC % PT with INR INR PTT (Actin FS) Sodium 140 Potassium 4.0 Chloride 108 H Carbon Dioxide 21 Anion Gap 11 BUN 12.9 Creatinine 0.7 Est GFR (CKD-EPI)AfAm 134.75 Est GFR (CKD-EPI)NonAf 116.26 POC Glucometer 103 Random Glucose 88 Calcium 8.4 L Phosphorus 4.0 Magnesium 2.0 Total Bilirubin 0.5 AST 28 ALT 26 Alkaline Phosphatase 94 Troponin I < 0.02 B-Natriuretic Peptide 704.1 H Total Protein 6.1 L Albumin 2.5 L ASSESSMENT/PLAN: 29 y/o F s/p 3 days prior to arrival presents with SOB of 1 day duration that began spontaneously while patient was sleeping and has since worsened, with orthopnea and b/l leg swelling is admitted for peripartum CHF/Cardiomyopathy and 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 new onset chf in the setting of recent delivery/ 3 days ago, BNP elevated, b/l LE edema Fluid overload on CXR b/l pleural effusion and infiltrates, acute pulm edema pattern w/ cephalization of vasculature Bedside echo in ed: dilated LV with likely somewhat decreased contractility EKG: showing no LVH, VENTURA noted but no ischemic changes Cont to diurese Lasix 40 IV now, reassess tomorrow r/p CXR and EKG in am ECHO for saturday Cardio consulted- appreciate recom Trend trops I&O's, daily weights f/u TSH #R/o PE unable to take CTA due to sob and orthopnea will defer CTA for now recalculated Wells score= 3 Started on Heparin drip in ED will consider d/cing once effective diuresis is complete and CTA is obtained Duplex of b/l legs No ativan or valium or anti-anxiolytics at the moment #Recent abdominal tenderness, surgical scar healing well, vaginal discharge improving Stable Security Professional consulted ordered- will f/u #DVT ppx in light of Heparin drip no dvt ppx #FEN monitor lytes avoid IVF regular diet Dispo: f/u ECHO, cont lasix, f/u CXR, f/u ASSEMBLER SHOW MOTOR recom. Visit type - Emergency Visit Emergency Visit: Yes ED Registration Date: 11/28/19 Care time: The patient presented to the Emergency Department on the above date and was hospitalized for further evaluation of their emergent condition. - New Patient This patient is new to me today: Yes Date on this admission: 12/11/19 - Critical Care Critical Care patient: No ATTENDING PHYSICIAN STATEMENT I saw and evaluated the patient. I reviewed the resident's note and discussed the case with the resident. I agree with the resident's findings and plan as documented. SUBJECTIVE: OBJECTIVE: ASSESSMENT AND PLAN:
[2019-11-28] MEDS: ACETAMINOPHEN 1000 MG/100 ML VIAL (NON FORMULARY) IVPB PRN (21:17)
[2019-11-29] MEDS: ACETAMINOPHEN 1000 MG/100 ML VIAL (NON FORMULARY) IVPB PRN (03:31)
[2019-11-29 06:30] VITALS: BMI 31.4
--- NOTE | 2019-11-29 07:30 | CON.CARD ---
Consult Consult Specialty:: cardio - History of Present Illness Chief Complaint: sob History of Present Illness: see yesterday's brief note for details. 29 yo female presenting with marked orthopnea/sob shortly after delivery. CXR acute pulm edema, ? enlarged heart. ECG with VENTURA. responded to lasix 40 IV in ER with improvement in sob. BNP 700 today, she is much better. breathing feels normal. urinated a lot yest and this AM. notes chest pressure at home when sob during laying flat--relieved as well with upright position no palp, syncope denies etoh, cigs no FH of heart dz - Past Surgical History Past Surgical History: Yes: None - Alcohol/Substance Use Hx Alcohol Use: No History of Substance Use: reports: None - Smoking History Smoking history: Never smoked Have you smoked in the past 12 months: No Aproximately how many cigarettes per day: 0 - Social History History of Recent Travel: No Home Medications - Allergies Allergies/Adverse Reactions: Allergies Allergy/AdvReac Type Severity Reaction Status Date / Time No Known Allergies Allergy Verified 11/25/19 16:46 - Home Medications Home Medications: Ambulatory Orders Vitamins (Sjr) - 1 tab PO DAILY 11/25/19 Ibuprofen [Motrin -] 600 mg PO QID #28 tablet 11/26/19 Oxycodone HCl/Acetaminophen [Percocet 5-325 mg Tablet] 2 tab PO Q4H #20 tablet MDD 6 11/26/19 Review of Systems - Review of Systems Constitutional: denies: Chills, Fever Eyes: denies: Eye Pain HENT: denies: Nasal Congestion Neck: denies: Stiffness Cardiovascular: denies: Palpitations Respiratory: denies: PND Gastrointestinal: denies: Diarrhea, Rectal Bleeding Genitourinary: denies: Burning, Hematuria Musculoskeletal: denies: Muscle Pain Integumentary: denies: Rash Neurological: denies: Numbness, Seizure, Syncope Endocrine: denies: Excessive Sweating Hematology/Lymphatic: denies: Excessive Bleeding Vital Signs: Vital Signs Temperature 98.0 F 11/29/19 02:00 Pulse Rate 89 11/29/19 06:00 Respiratory Rate 11/29/19 06:00 Blood Pressure 117/68 11/29/19 06:00 O2 Sat by Pulse Oximetry (%) 96 11/28/19 20:00 Constitutional: Yes: Well Nourished, No Distress Eyes: No: Sclera Icterus HENT: No: Nasal Congestion Neck: No: Decreased ROM Respiratory: Yes: CTA Bilaterally. No: Accessory Muscle Use, Rales, Wheezes Gastrointestinal: Yes: Normal Bowel Sounds. No: Distention, Hepatomegaly, Palpable Mass, Tenderness Cardiovascular: Yes: Regular Rate and Rhythm JVD: No Carotid Bruit: No PMI: Non-Displaced Heart Sounds: Yes: S1, S2. No: Gallop Murmur: No: Systolic Murmur, Diastolic Murmur Musculoskeletal: Yes: Other (No kyphosis) Extremities: No: Cool, Cyanosis Edema: No Peripheral Pulses: 2+ Left Carotid, 2+ Right Carotid, 2+ Left Doralis Pedis, 2+ Right Dorsalis Pedis Integumentary: No: Jaundice Neurological: Yes: Alert, Oriented (x3) Psychiatric: No: Agitated - Other Data Labs, Other Data: INR, PTT INR 0.92 (0.83-1.09) 11/28/19 12:21 Troponin, BNP 11/28/19 11/28/19 11/28/19 12:21 12:21 19:35 Troponin I < 0.02 < 0.02 B-Natriuretic Peptide 704.1 H Troponin, BNP 11/28/19 11/28/19 11/28/19 12:21 12:21 19:35 Troponin I < 0.02 < 0.02 B-Natriuretic Peptide 704.1 H Assessment/Plan CXR: acute pulm edema CTA chest: no PE. bilat small-mod effusions. bilat alveolar consolidation c/w pulm edema ECG: sinus tach, VENTURA tele: NSR acute CHF, unknown type: -suspicious for peripartum CMP -echo in AM (pt wishes to go home today but explained to her that unfortunately, this may not be safe until we know her cardiac function....she is at risk for very severe LV dysfunction) -appears compensated/euvolemic--change lasix to 40 po qd
[2019-11-29 07:36] LABS: BASO % 0.4 % (0-2.0); EOS % 0.7 % (0-4.5); HEMATOCRIT 33.9 % (32.4-45.2); HEMOGLOBIN 11.3 GM/dL (10.7-15.3); MCH 28.6 pg (25.7-33.7); MCHC 33.4 g/dl (32.0-36.0); MEAN CELL VOLUME 85.7 fl (80-96); MEAN PLT VOLUME 10.7 fl (7.5-11.1); MONO % 4.4 % (3.8-10.2); NEUT % 76.5 % (42.8-82.8); PLATELET COUNT 139 K/MM3 (134-434); RBC 3.96 M/mm3 (3.60-5.2); RDW 14.1 % (11.6-15.6); WHITE BLOOD COUNT 9.9 K/mm3 (4.0-10.0)
[2019-11-29 08:00] LABS: ALBUMIN 2.5 g/dl (3.4-5.0); BILIRUBIN,TOTAL 0.9 mg/dL (0.2-1); BLOOD UREA NITROGEN 12.3 mg/dL (7-18); CALCIUM 8.4 mg/dL (8.5-10.1); CREATININE 0.7 mg/dL (0.55-1.3); MAGNESIUM 2.1 mg/dL (1.8-2.4); PHOSPHOROUS 4.1 mg/dL (2.5-4.9); POTASSIUM 3.6 mmol/L (3.5-5.1); TOT PROT 5.8 g/dl (6.4-8.2)
[2019-11-29] MEDS: HEPARIN - 25,000 UNIT in SODIUM CHLORIDE 495 ML IV SCH (08:09)
[2019-11-29] MEDS ORDERED: PT OWN MED DRAWER 7, Y5N ONE (09:07)
[2019-11-29] MEDS ORDERED: FUROSEMIDE 40 MG/4 ML INJECTABLE VIAL IVPUSH SCH (10:00)
[2019-11-29] MEDS ORDERED: PATIENT'S OWN MEDICATION (NON-FORMULARY) (Prenatal Vitamins (Sjr) - [Prenatal Vitamins (Sj PO SCH (10:00)
--- NOTE | 2019-11-29 12:20 | PN ---
Physical Exam: SUBJECTIVE: Patient seen and examined beside. Lying comfortably on RA. Notes mild chest pressure in mid sternum that has improved significantly since yesterday. In no acute distress. OBJECTIVE: Vital Signs Period Temp Pulse Resp BP Sys/Erickson Pulse Ox Last 24 Hr 98 F-99.0 F 87-109 20-30 117-138/68-83 96-100 GENERAL: A&O x3 EYES: PERRL LUNGS: slightly decrease breath sounds LLL, otherwise CTA BL HEART: Regular rate and rhythm ABDOMEN: Soft, slightly tender in lower quadrants near incision sit from c- section. Incision looks clean, sutures intact. MSK: no edema BL NEUROLOGICAL: Normal speech. Laboratory Results - last 24 hr 11/28/19 11/28/19 11/28/19 12:21 12:21 12:21 WBC 10.3 H RBC 3.87 Hgb 11.3 Hct 33.5 MCV 86.6 MCH 29.1 MCHC 33.6 RDW 14.4 Plt Count 120 L D MPV 10.6 D Absolute Neuts (auto) 8.4 H Neutrophils % 81.1 Lymphocytes % 13.8 Monocytes % 4.2 Eosinophils % 0.6 D Basophils % 0.3 Nucleated RBC % 0 PT with INR 10.80 INR 0.92 PTT (Actin FS) 26.0 D-Dimer Sodium Potassium Chloride Carbon Dioxide Anion Gap BUN Creatinine Est GFR (CKD-EPI)AfAm Est GFR (CKD-EPI)NonAf POC Glucometer Random Glucose Calcium Phosphorus Cancelled Magnesium Total Bilirubin AST ALT Alkaline Phosphatase Troponin I B-Natriuretic Peptide Total Protein Albumin TSH 11/28/19 11/28/19 11/28/19 12:21 12:21 17:04 WBC RBC Hgb Hct MCV MCH MCHC RDW Plt Count MPV Absolute Neuts (auto) Neutrophils % Lymphocytes % Monocytes % Eosinophils % Basophils % Nucleated RBC % PT with INR INR PTT (Actin FS) D-Dimer Sodium 140 Potassium 4.0 Chloride 108 H Carbon Dioxide 21 Anion Gap 11 BUN 12.9 Creatinine 0.7 Est GFR (CKD-EPI)AfAm 134.75 Est GFR (CKD-EPI)NonAf 116.26 POC Glucometer 103 Random Glucose 88 Calcium 8.4 L Phosphorus 4.0 Magnesium 2.0 Total Bilirubin 0.5 AST 28 ALT 26 Alkaline Phosphatase 94 Troponin I < 0.02 B-Natriuretic Peptide 704.1 H Total Protein 6.1 L Albumin 2.5 L TSH 11/28/19 11/28/19 11/28/19 19:35 19:35 19:35 WBC RBC Hgb Hct MCV MCH MCHC RDW Plt Count MPV Absolute Neuts (auto) Neutrophils % Lymphocytes % Monocytes % Eosinophils % Basophils % Nucleated RBC % PT with INR INR PTT (Actin FS) 41.6 H D-Dimer 1834 H Sodium Potassium Chloride Carbon Dioxide Anion Gap BUN Creatinine Est GFR (CKD-EPI)AfAm Est GFR (CKD-EPI)NonAf POC Glucometer Random Glucose Calcium Phosphorus Magnesium Total Bilirubin AST ALT Alkaline Phosphatase Troponin I < 0.02 B-Natriuretic Peptide Total Protein Albumin TSH 1.06 11/29/19 11/29/19 11/29/19 06:42 06:42 06:42 WBC 9.9 RBC 3.96 Hgb 11.3 Hct 33.9 MCV 85.7 MCH 28.6 MCHC 33.4 RDW 14.1 Plt Count 139 MPV 10.7 Absolute Neuts (auto) 7.6 Neutrophils % 76.5 Lymphocytes % 18.0 D Monocytes % 4.4 Eosinophils % 0.7 Basophils % 0.4 Nucleated RBC % 0 PT with INR INR PTT (Actin FS) 38.9 H D-Dimer Sodium 140 Potassium 3.6 Chloride 106 Carbon Dioxide 26 Anion Gap 8 BUN 12.3 Creatinine 0.7 Est GFR (CKD-EPI)AfAm 134.75 Est GFR (CKD-EPI)NonAf 116.26 POC Glucometer Random Glucose 83 Calcium 8.4 L Phosphorus 4.1 Magnesium 2.1 Total Bilirubin 0.9 AST 46 H ALT 54 Alkaline Phosphatase 90 Troponin I B-Natriuretic Peptide Total Protein 5.8 L Albumin 2.5 L TSH 11/29/19 11:54 WBC RBC Hgb Hct MCV MCH MCHC RDW Plt Count MPV Absolute Neuts (auto) Neutrophils % Lymphocytes % Monocytes % Eosinophils % Basophils % Nucleated RBC % PT with INR INR PTT (Actin FS) D-Dimer Sodium Potassium Chloride Carbon Dioxide Anion Gap BUN Creatinine Est GFR (CKD-EPI)AfAm Est GFR (CKD-EPI)NonAf POC Glucometer 84 Random Glucose Calcium Phosphorus Magnesium Total Bilirubin AST ALT Alkaline Phosphatase Troponin I B-Natriuretic Peptide Total Protein Albumin TSH Active Medications Generic Name Dose Route Start Last Admin Trade Name Freq PRN Reason Stop Dose Admin Acetaminophen 1,000 mg 11/28/19 15:52 11/29/19 03:31 Ofirmev Injection - IVPB 1,000 mg Q6H PRN Administration PAIN LEVEL 1-5 Furosemide 40 mg 11/29/19 10:00 11/29/19 09:37 Lasix Injection - IVPUSH 40 mg DAILY TITO Administration IMAGING Venous Doppler - neg for DVT CTA CHEST : Bilateral pleural effusions. Bilateral alveolar consolidation suggestive of pulmonary vascular congestion. 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 Peripartum CHF/Cardiomyopathy - S/P CSECTION BY DR William. - new onset CHF in the setting of recent associated with elevated BNP & BL LE edema - EKG: showing no LVH, VENTURA noted but no ischemic changes - ECHO Saturday - Cardio consulted (Dr. Perez) patient responded well to Lasix and is improving switched to Lasix 40 mg po QD - Pulm Consulted (Dr. Culver) - I&O's, daily weights - TSH wnl - Trend BNP - LE Edema has resolved R/o PE CTA neg for PE & US neg for DVT d/c heparin Recent abdominal tenderness, surgical scar healing well Police Chief Deputy consulted ordered- will f/u DVT ppx Start Lovenox tomorrow d/c therapeutic dose of heparin today FEN monitor lytes avoid IVF regular diet Dispo: pending Visit type - Emergency Visit Emergency Visit: Yes ED Registration Date: 11/28/19 Care time: The patient presented to the Emergency Department on the above date and was hospitalized for further evaluation of their emergent condition. - New Patient This patient is new to me today: No - Critical Care Critical Care patient: No - Discharge Referral Referred to [facility] Med [facility].C[facility] No ATTENDING PHYSICIAN STATEMENT I saw and evaluated the patient. I reviewed the resident's note and discussed the case with the resident. I agree with the resident's findings and plan as documented. SUBJECTIVE: OBJECTIVE: ASSESSMENT AND PLAN:
--- NOTE | 2019-11-29 14:30 | CON.PULM ---
Consult Consult Specialty:: PULM/CCM Referred by:: Hospitalist Reason for Consultation:: SOB - History of Present Illness Chief Complaint: SOB History of Present Illness: 29 F, s/p 3 days prior to admission. Admitted due to 1 day of progressive SOB and sternal CP. No related complications. She did develop some snoring but no clear history consistent with OSAS. Episode did wake her out of her sleep. CTA : No PE. Diffuse bilateral pulmonary vascular congestion with cardiomegaly and pleural effusions. Started on empiric IV Heparin. - History Source History Provided By: Patient Limitations to Obtaining History: No Limitations - Past Medical History Pulmonary: No: Asthma, Bronchitis, Cancer, COPD, O2 Dependent, Pneumonia, Previously Intubated, Pulmonary Embolus, Pulmonary Fibrosis, Sleep Apnea - Past Surgical History Past Surgical History: Yes: None - Alcohol/Substance Use Hx Alcohol Use: No History of Substance Use: reports: None - Smoking History Smoking history: Never smoked Have you smoked in the past 12 months: No Aproximately how many cigarettes per day: 0 - Social History History of Recent Travel: No Home Medications - Allergies Allergies/Adverse Reactions: Allergies Allergy/AdvReac Type Severity Reaction Status Date / Time No Known Allergies Allergy Verified 11/25/19 16:46 - Home Medications Home Medications: Ambulatory Orders Vitamins (Sjr) - 1 tab PO DAILY 11/25/19 Ibuprofen [Motrin -] 600 mg PO QID #28 tablet 11/26/19 Oxycodone HCl/Acetaminophen [Percocet 5-325 mg Tablet] 2 tab PO Q4H #20 tablet MDD 6 11/26/19 Review of Systems - Review of Systems Constitutional: denies: Chills, Fever, Malaise, Night Sweats, Unintentional Wgt. Loss Eyes: reports: No Symptoms HENT: reports: No Symptoms Neck: reports: No Symptoms Cardiovascular: reports: Chest Pain, Edema, Shortness of Breath Respiratory: reports: Orthopnea, Snoring, SOB, SOB on Exertion. denies: Cough, Hemoptysis, PND, Wheezing Gastrointestinal: reports: Abdominal Pain. denies: Rectal Bleeding, Vomiting Blood Genitourinary: reports: No Symptoms Breasts: reports: No Symptoms Reported Musculoskeletal: reports: No Symptoms Integumentary: reports: No Symptoms Neurological: reports: No Symptoms Endocrine: reports: No Symptoms Hematology/Lymphatic: reports: No Symptoms Psychiatric: reports: No Symptoms Physical Exam Vital Sings: Vital Signs Temperature 98 F 11/29/19 07:42 Pulse Rate 97 H 11/29/19 07:42 Respiratory Rate 20 11/29/19 07:42 Blood Pressure 120/78 11/29/19 07:42 O2 Sat by Pulse Oximetry (%) 100 11/29/19 07:42 Constitutional: Yes: No Distress, Calm Eyes: Yes: Conjunctiva Clear, EOM Intact HENT: Yes: Atraumatic, Normocephalic Neck: Yes: Supple, Trachea Midline Cardiovascular: Yes: Regular Rate and Rhythm Respiratory: Yes: Diminished. No: Accessory Muscle Use, Rales, Rhonchi, SOB, SOB on Exertion, Stridor, Tachypnea, Wheezes ...Inspection: Yes: WNL ...Clubbing: No Gastrointestinal: Yes: Normal Bowel Sounds, Soft, Abdomen, Obese Renal/: Yes: WNL Breast(s): Yes: Nipple Inversion Extremities: Yes: WNL Edema: Yes Peripheral Pulses WNL: Yes Integumentary: Yes: WNL Neurological: Yes: WNL, Alert, Oriented ...Motor Strength: WNL Psychiatric: Yes: WNL, Alert, Oriented Labs: CBC, BMP 11/29/19 06:42 11/29/19 06:42 Imaging - Results Chest X-ray: Report Reviewed, Image Reviewed Cat Scan: Report Reviewed, Image Reviewed Assessment/Plan IMP: Suspected Cardiomyopathy Do not suspect Infection or COVID19 Possible OSAS related to weight gain and volume retention due to recent PE ruled out PLAN: Diuresis Supplemental O2 as needed Monitor off ABX VTE prophylaxis ECHO ordered Daily weights Monitor I & O Will follow Thank you. Dr Culver
--- NOTE | 2019-11-29 15:55 | PN ---
Teaching Attending Note Name of Resident: Loan Day ATTENDING PHYSICIAN STATEMENT I saw and evaluated the patient. I reviewed the resident's note and discussed the case with the resident. I agree with the resident's findings and plan as documented. SUBJECTIVE: Patient is feeling better with no acute distress, saturating 98% at Room air. OBJECTIVE: Vital Signs Temperature 98.2 F 11/29/19 14:10 Pulse Rate 89 11/29/19 14:10 Respiratory Rate 20 11/29/19 14:10 Blood Pressure 118/67 11/29/19 14:10 O2 Sat by Pulse Oximetry (%) 100 11/29/19 07:42 Initial Vital Signs Temp Pulse Resp BP Pulse Ox 97.8 F 119 H 26 H 126/87 95 11/28/19 12:01 11/28/19 12:01 11/28/19 12:01 11/28/19 12:01 11/28/19 12:01 PE: GAE BL CVS: S1S2 +, no gallop is noted Extremities: no edema today bl neuro: AA0x3 CBCD WBC 9.9 K/mm3 (4.0-10.0) 11/29/19 06:42 RBC 3.96 M/mm3 (3.60-5.2) 11/29/19 06:42 Hgb 11.3 GM/dL (10.7-15.3) 11/29/19 06:42 Hct 33.9 % (32.4-45.2) 11/29/19 06:42 MCV 85.7 fl (80-96) 11/29/19 06:42 MCHC 33.4 g/dl (32.0-36.0) 11/29/19 06:42 RDW 14.1 % (11.6-15.6) 11/29/19 06:42 Plt Count 139 K/MM3 (134-434) 11/29/19 06:42 MPV 10.7 fl (7.5-11.1) 11/29/19 06:42 CMP Sodium 140 mmol/L (136-145) 11/29/19 06:42 Potassium 3.6 mmol/L (3.5-5.1) 11/29/19 06:42 Chloride 106 mmol/L (98-107) 11/29/19 06:42 Carbon Dioxide 26 mmol/L (21-32) 11/29/19 06:42 Anion Gap 8 MMOL/L (8-16) 11/29/19 06:42 BUN 12.3 mg/dL (7-18) 11/29/19 06:42 Creatinine 0.7 mg/dL (0.55-1.3) 11/29/19 06:42 Random Glucose 83 mg/dL (74-106) 11/29/19 06:42 Calcium 8.4 mg/dL (8.5-10.1) L 11/29/19 06:42 Total Bilirubin 0.9 mg/dL (0.2-1) 11/29/19 06:42 AST 46 U/L (15-37) H 11/29/19 06:42 ALT 54 U/L (13-61) 11/29/19 06:42 Alkaline Phosphatase 90 U/L (45-117) 11/29/19 06:42 Total Protein 5.8 g/dl (6.4-8.2) L 11/29/19 06:42 Albumin 2.5 g/dl (3.4-5.0) L 11/29/19 06:42 CARDIAC ENZYMES Troponin I < 0.02 ng/ml (0.00-0.05) 11/28/19 19:35 Current Medications Generic Name Dose Route Start Last Admin Trade Name Maya PRN Reason Stop Dose Admin Acetaminophen 1,000 mg 11/28/19 15:52 11/29/19 03:31 Ofirmev Injection - IVPB 1,000 mg Q6H PRN Administration PAIN LEVEL 1-5 Furosemide 40 mg 11/30/19 10:00 Lasix - PO DAILY [facility] Home Medications Medication Instructions Recorded Vitamins (Sjr) - 1 tab PO DAILY 11/25/19 Ibuprofen [Motrin -] 600 mg PO QID #28 tablet 11/26/19 Oxycodone HCl/Acetaminophen 2 tab PO Q4H #20 tablet MDD 6 11/26/19 [Percocet 5-325 mg Tablet] cxr: BL CONGESTIVE CHANGES EKG: sinus tachy rate of 109, ant infarct age undetermined. no ST elevation or [id number] ASSESSMENT AND PLAN: This patient is a 29yof , s/p 3 days prior to arrival presents to the ED with one day of SOB post discharge 3 days ago. was admitted to r/o PE. CTA was done is negative. # CM: continue LASIX 40MG IV, IS AND OS, TELE ADMISSION, 2 L NC KEEP SA02>93%, DAILY WEIGHT, ECHO, CARDIO CONSULT, 2 MORE SETS OF TROPS. EKG IN AM, CXR IN AM. DUPLEX OF LOWER EXTREMITIES is negative. CTA negTIVE, WILL GAT echo IN AM AND cxr #POD#5 S/P BY DR William. DVT Px: heparin sq
[2019-11-30] MEDS: ACETAMINOPHEN 1000 MG/100 ML VIAL (NON FORMULARY) IVPB PRN (00:51)
[2019-11-30 06:09] LABS: HEMATOCRIT 34.9 % (32.4-45.2); HEMOGLOBIN 11.6 GM/dL (10.7-15.3); MCH 28.6 pg (25.7-33.7); MCHC 33.1 g/dl (32.0-36.0); MEAN CELL VOLUME 86.2 fl (80-96); MEAN PLT VOLUME 9.7 fl (7.5-11.1); PLATELET COUNT 166 K/MM3 (134-434); RBC 4.05 M/mm3 (3.60-5.2); RDW 14.2 % (11.6-15.6); WHITE BLOOD COUNT 7.9 K/mm3 (4.0-10.0)
[2019-11-30 06:34] LABS: BLOOD UREA NITROGEN 17.8 mg/dL (7-18); CALCIUM 8.9 mg/dL (8.5-10.1); CREATININE 0.8 mg/dL (0.55-1.3); MAGNESIUM 2.1 mg/dL (1.8-2.4); N-TERMINAL BNP 155.1 pg/ml (5-125); PHOSPHOROUS 4.7 mg/dL (2.5-4.9); POTASSIUM 3.7 mmol/L (3.5-5.1)
--- NOTE | 2019-11-30 09:14 | EKG ---
Test Reason : Blood Pressure : / mmHG Vent. Rate : 091 BPM Atrial Rate : 091 BPM P-R Int : 146 ms QRS Dur : 078 ms QT Int : 368 ms P-R-T Axes : 025 -05 036 degrees QTc Int : 452 ms NORMAL SINUS RHYTHM LEFT ATRIAL ENLARGEMENT BORDERLINE ECG WHEN COMPARED WITH ECG OF 28-NOV-2019 12:17, NO SIGNIFICANT CHANGE WAS FOUND Confirmed by Curry Abebe ([id number]) on 11/30/2019 9:14:46 AM Referred By: Fior STORM Confirmed By:Curry Abebe
[2019-11-30] MEDS ORDERED: FUROSEMIDE 40 MG TABLET (FP) PO SCH (10:00)
[2019-11-30] MEDS ORDERED: ENOXAPARIN NA (PORCINE) 40 MG/0.4 ML DISP.SYRIN SQ SCH (10:00)
--- NOTE | 2019-11-30 10:28 | ECHO ---
Name: XIN PAYAN Exam:Adult Echocardiogram Study Date: 11/30/2019 09:43 AM Age: 29 yrs Reason For Study: R/O CARDIOMYOPATHY Height: 65 in Weight: 176 lb BSA: 1.9 m2 MMode/2D Measurements & Calculations IVSd: 0.82 cm Ao root diam: 2.0 cm LVIDd: 5.5 cm LA dimension: 4.0 cm LVIDs: 4.9 cm LVPWd: 1.00 cm EDV(Teich): 146.7 ml LVOT diam: 2.0 cm ESV(Teich): 112.8 ml LAV (MOD-bp): 83.2 ml Doppler Measurements & Calculations MV E max wyatt: 130.0 cm/sec Ao V2 max: 141.2 cm/sec MV A max wyatt: 94.3 cm/sec Ao max P.0 mmHg MV E/A: 1.4 MV dec time: 0.13 sec TONYA(V,D): 2.1 cm2 LV V1 max P.4 mmHg MR max wyatt: 502.5 cm/sec LV V1 max: 92.4 cm/sec MR max P.0 mmHg TR max wyatt: 204.1 cm/sec PA V2 max: 92.3 cm/sec TR max P.7 mmHg PA max P.4 mmHg Med Peak E' Wyatt: 8.3 cm/sec PI Vmax: 169.7 cm/sec Med E/e': 15.7 Lat Peak E' Wyatt: 13.6 cm/sec Lat E/e': 9.6 Procedure Study Quality: Fair. Left Ventricle The left ventricle is mildly dilated. Ejection Fraction = 20-25%. Diastolic dysfunction, Grade III (restrictive pattern), consistent with markedly increased left atrial pressure. There is severe globa l hypokinesis of the left ventricle. Right Ventricle The right ventricle is normal in size and function. Atria The left atrium is severely dilated. Right atrial size is normal. Mitral Valve The mitral valve is grossly normal. There is mild mitral regurgitation. Tricuspid Valve The tricuspid valve is normal. There is mild tricuspid regurgitation. Right ventricular systolic pres sure is normal. Aortic Valve The aortic valve is normal in structure and function. Pulmonic Valve The pulmonic valve is not well seen, but is grossly normal. Great Vessels The aortic root is normal size. Pericardium/Pleura Small pericardial effusion. Interpretation Summary LV: Mildly dilated, severe global hypokinesia, EF about 20%, grade III diastolic dysfunction, elvated EDP/LAP RV: Normal LA: severely dilated, bulging interatrian septum to right suggestive of elevated LAP MV: Tethered with mild MR Pericardium: Small effussion. Curry Abeeb 11/30/2019 10:28 AM
--- NOTE | 2019-11-30 13:29 | PN ---
Progress Note (short form) - Note Progress Note: s: no cp sob palps dizzy le edema Current Medications Generic Name Dose Route Start Last Admin Trade Name Freq PRN Reason Stop Dose Admin Acetaminophen 1,000 mg 11/28/19 15:52 11/30/19 00:51 Ofirmev Injection - IVPB 1,000 mg Q6H PRN Administration PAIN LEVEL 1-5 Enoxaparin Sodium 40 mg 11/30/19 10:00 11/30/19 10:23 Lovenox - SQ 40 mg DAILY TITO Administration Furosemide 40 mg 11/30/19 10:00 11/30/19 10:23 Lasix - PO 40 mg DAILY TITO Administration Vital Signs Period Temp Pulse Resp BP Sys/Erickson Pulse Ox Last 24 Hr 97.6 F-98.3 F 71-96 18-20 109-135/61-80 96-99 Constitutional: Yes: Well Nourished, No Distress Eyes: No: Sclera Icterus HENT: No: Nasal Congestion Neck: No: Decreased ROM Respiratory: Yes: CTA Bilaterally. No: Accessory Muscle Use, Rales, Wheezes Gastrointestinal: Yes: Normal Bowel Sounds. No: Distention, Hepatomegaly, Palpable Mass, Tenderness Cardiovascular: Yes: Regular Rate and Rhythm JVD: No Carotid Bruit: No PMI: Non-Displaced Heart Sounds: Yes: S1, S2. No: Gallop Murmur: No: Systolic Murmur, Diastolic Murmur Musculoskeletal: Yes: Other (No kyphosis) Extremities: No: Cool, Cyanosis Edema: No Peripheral Pulses: 2+ Left Carotid, 2+ Right Carotid, 2+ Left Doralis Pedis, 2+ Right Dorsalis Pedis Integumentary: No: Jaundice Neurological: Yes: Alert, Oriented (x3) Psychiatric: No: Agitated CBC, BMP 11/30/19 05:44 11/30/19 05:44 Assessment/Plan CXR: acute pulm edema CTA chest: no PE. bilat small-mod effusions. 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 -ok for dc from cardiac pov
--- NOTE | 2019-11-30 14:04 | PN ---
Progress Note (short form) - Note Progress Note: Feels overall much better today. Comfortable on RA. No acute events overnight. ECHO : noted : severe global hypokinesis / EF 20% Intake & Output 11/27/19 11/28/19 11/29/19 11/30/19 23:59 23:59 23:59 23:59 Intake Total 210 1420 360 Balance 210 1420 360 Weight 189 lb 189 lb 183 lb 2 oz Last Vital Signs Temp Pulse Resp BP Pulse Ox 97.6 F 90 18 124/74 96 11/30/19 10:00 11/30/19 10:00 11/30/19 10:00 11/30/19 10:00 11/30/19 10:00 Active Medications Acetaminophen (Ofirmev Injection -) 1,000 mg IVPB Q6H PRN PRN Reason: PAIN LEVEL 1-5 Last Admin: 11/30/19 00:51 Dose: 1,000 mg Documented by: Enoxaparin Sodium (Lovenox -) 40 mg SQ DAILY [facility] Last Admin: 11/30/19 10:23 Dose: 40 mg Documented by: Furosemide (Lasix -) 40 mg PO DAILY [facility] Last Admin: 11/30/19 10:23 Dose: 40 mg Documented by: Constitutional: Yes: No Distress, Calm Eyes: Yes: Conjunctiva Clear, EOM Intact HENT: Yes: Atraumatic, Normocephalic Neck: Yes: Supple, Trachea Midline Cardiovascular: Yes: Regular Rate and Rhythm Respiratory: Yes: Diminished. No: Accessory Muscle Use, Rales, Rhonchi, SOB, SOB on Exertion, Stridor, Tachypnea, Wheezes ...Inspection: Yes: WNL ...Clubbing: No Gastrointestinal: Yes: Normal Bowel Sounds, Soft, Abdomen, Obese Renal/: Yes: WNL Breast(s): Yes: Nipple Inversion Extremities: Yes: WNL Edema: Yes Peripheral Pulses WNL: Yes Integumentary: Yes: WNL Neurological: Yes: WNL, Alert, Oriented ...Motor Strength: WNL Psychiatric: Yes: WNL, Alert, Oriented Labs: Laboratory Results - last 24 hr 11/29/19 11/29/19 11/30/19 15:30 21:52 05:28 WBC RBC Hgb Hct MCV MCH MCHC RDW Plt Count MPV PTT (Actin FS) 27.0 Sodium Potassium Chloride Carbon Dioxide Anion Gap BUN Creatinine Est GFR (CKD-EPI)AfAm Est GFR (CKD-EPI)NonAf POC Glucometer 102 86 Random Glucose Calcium Phosphorus Magnesium B-Natriuretic Peptide 11/30/19 11/30/19 11/30/19 05:44 05:44 05:44 WBC 7.9 RBC 4.05 Hgb 11.6 Hct 34.9 MCV 86.2 MCH 28.6 MCHC 33.1 RDW 14.2 Plt Count 166 MPV 9.7 PTT (Actin FS) 26.0 Sodium 139 Potassium 3.7 Chloride 106 Carbon Dioxide 25 Anion Gap 8 BUN 17.8 Creatinine 0.8 Est GFR (CKD-EPI)AfAm 114.66 Est GFR (CKD-EPI)NonAf 98.93 POC Glucometer Random Glucose 87 Calcium 8.9 Phosphorus 4.7 Magnesium 2.1 B-Natriuretic Peptide 155.1 H Imaging - Results Chest X-ray: Report Reviewed, Image Reviewed Cat Scan: Report Reviewed, Image Reviewed Assessment/Plan IMP: Suspected Cardiomyopathy Do not suspect Infection or COVID19 Possible OSAS related to weight gain and volume retention due to recent PE ruled out PLAN: Meds per Cardiology There is no Pulmonary contraindication for DC Dr Culver
--- NOTE | 2019-11-30 14:14 | PN ---
Teaching Attending Note Name of Resident: Loan Day ATTENDING PHYSICIAN STATEMENT I saw and evaluated the patient. I reviewed the resident's note and discussed the case with the resident. I agree with the resident's findings and plan as documented. SUBJECTIVE: Patient is feeling better with no acute distress. No further shortness of breath. discussed with her and her in detauls regarding her condition. OBJECTIVE: Vital Signs Temperature 97.6 F 11/30/19 10:00 Pulse Rate 90 11/30/19 10:00 Respiratory Rate 18 11/30/19 10:00 Blood Pressure 124/74 11/30/19 10:00 O2 Sat by Pulse Oximetry (%) 96 11/30/19 10:00 PE; per resident's note CBCD WBC 7.9 K/mm3 (4.0-10.0) 11/30/19 05:44 RBC 4.05 M/mm3 (3.60-5.2) 11/30/19 05:44 Hgb 11.6 GM/dL (10.7-15.3) 11/30/19 05:44 Hct 34.9 % (32.4-45.2) 11/30/19 05:44 MCV 86.2 fl (80-96) 11/30/19 05:44 MCHC 33.1 g/dl (32.0-36.0) 11/30/19 05:44 RDW 14.2 % (11.6-15.6) 11/30/19 05:44 Plt Count 166 K/MM3 (134-434) 11/30/19 05:44 MPV 9.7 fl (7.5-11.1) 11/30/19 05:44 CMP Sodium 139 mmol/L (136-145) 11/30/19 05:44 Potassium 3.7 mmol/L (3.5-5.1) 11/30/19 05:44 Chloride 106 mmol/L (98-107) 11/30/19 05:44 Carbon Dioxide 25 mmol/L (21-32) 11/30/19 05:44 Anion Gap 8 MMOL/L (8-16) 11/30/19 05:44 BUN 17.8 mg/dL (7-18) 11/30/19 05:44 Creatinine 0.8 mg/dL (0.55-1.3) 11/30/19 05:44 Random Glucose 87 mg/dL (74-106) 11/30/19 05:44 Calcium 8.9 mg/dL (8.5-10.1) 11/30/19 05:44 Total Bilirubin 0.9 mg/dL (0.2-1) 11/29/19 06:42 AST 46 U/L (15-37) H 11/29/19 06:42 ALT 54 U/L (13-61) 11/29/19 06:42 Alkaline Phosphatase 90 U/L (45-117) 11/29/19 06:42 Total Protein 5.8 g/dl (6.4-8.2) L 11/29/19 06:42 Albumin 2.5 g/dl (3.4-5.0) L 11/29/19 06:42 CARDIAC ENZYMES Troponin I < 0.02 ng/ml (0.00-0.05) 11/28/19 19:35 Current Medications Generic Name Dose Route Start Last Admin Trade Name Freq PRN Reason Stop Dose Admin Acetaminophen 1,000 mg 11/28/19 15:52 11/30/19 00:51 Ofirmev Injection - IVPB 1,000 mg Q6H PRN Administration PAIN LEVEL 1-5 Enoxaparin Sodium 40 mg 11/30/19 10:00 11/30/19 10:23 Lovenox - SQ 40 mg DAILY TITO Administration Furosemide 40 mg 11/30/19 10:00 11/30/19 10:23 Lasix - PO 40 mg DAILY TITO Administration Home Medications Medication Instructions Recorded Vitamins (Sjr) - 1 tab PO DAILY 11/25/19 Enalapril Maleate 2.5 mg PO BID 30 Days #60 tablet 11/30/19 Furosemide [Lasix] 40 mg PO DAILY 30 Days #30 tablet 11/30/19 Metoprolol Succinate 25 mg PO DAILY 30 Days #30 11/30/19 tab.er.24h echo 11/2019: lvef, sev dec lvef, global hk, nl rv, lae, mild mr, with EJF of 20% cxr: BL CONGESTIVE CHANGES EKG: sinus tachy rate of 109, ant infarct age undetermined. no ST elevation or [id number] ASSESSMENT AND PLAN: This patient is a 29yof , s/p 3 days prior to arrival presents to the ED with one day of SOB post discharge 3 days ago. was admitted to r/o PE. CTA was done is negative. #Acute systolic CHF with EJF of 20% : as per ECHO which confirms peripartum CM. discussed with grants officer dr Canseco, recommends close follow up with his office, and to be discharged on lasix 40mg po daily, enalapril 2.5mg daily and toprol xl 25mg daily. To avoid breast feeding for now. as per Dr Gallegos's note , [facility] will call her to be seen in there office) next week (they will call her for appt). # CM: continue LASIX 40MG IV, IS AND OS, TELE ADMISSION, 2 L NC KEEP SA02>93%, DAILY WEIGHT, DUPLEX OF LOWER EXTREMITIES is negative. CTA negTIVE #POD#6 S/P BY DR William. DVT Px: heparin sq banana daily to maintain your potassium
[2019-11-30 14:23] VITALS: BP 114/66; PULSE 85; TEMP 98
--- NOTE | 2019-11-30 14:36 | DS ---
Physical Exam: SUBJECTIVE: Patient seen and examined bedside. Resting comfortably on RA. In no acute distress. No events overnight. Patient reports feeling much better. OBJECTIVE: Vital Signs Period Temp Pulse Resp BP Sys/Erickson Pulse Ox Last 24 Hr 97.6 F-98.3 F 71-96 18-20 109-135/61-80 96-99 PHYSICAL EXAM GENERAL: A&O x3 EYES: PERRL, conjunctiva clear LUNGS: CTA BL HEART: Regular rate and rhythm ABDOMEN: Soft, slightly tender lower abdomen. Incision from looks clean, sutures intact. MSK: no edema BL NEUROLOGICAL: Normal speech LABS Laboratory Tests 11/28/19 11/28/19 11/28/19 12:21 12:21 12:21 WBC 10.3 H RBC 3.87 Hgb 11.3 Hct 33.5 MCV 86.6 MCH 29.1 MCHC 33.6 RDW 14.4 Plt Count 120 L D MPV 10.6 D Absolute Neuts (auto) 8.4 H Neutrophils % 81.1 Lymphocytes % 13.8 Monocytes % 4.2 Eosinophils % 0.6 D Basophils % 0.3 Nucleated RBC % 0 PT with INR 10.80 INR 0.92 PTT (Actin FS) 26.0 D-Dimer Sodium Potassium Chloride Carbon Dioxide Anion Gap BUN Creatinine Est GFR (CKD-EPI)AfAm Est GFR (CKD-EPI)NonAf POC Glucometer Random Glucose Calcium Phosphorus Cancelled Magnesium Total Bilirubin AST ALT Alkaline Phosphatase Troponin I B-Natriuretic Peptide Total Protein Albumin TSH SARS-CoV-2 Ab Interp 11/28/19 11/28/19 11/28/19 12:21 12:21 17:04 WBC RBC Hgb Hct MCV MCH MCHC RDW Plt Count MPV Absolute Neuts (auto) Neutrophils % Lymphocytes % Monocytes % Eosinophils % Basophils % Nucleated RBC % PT with INR INR PTT (Actin FS) D-Dimer Sodium 140 Potassium 4.0 Chloride 108 H Carbon Dioxide 21 Anion Gap 11 BUN 12.9 Creatinine 0.7 Est GFR (CKD-EPI)AfAm 134.75 Est GFR (CKD-EPI)NonAf 116.26 POC Glucometer 103 Random Glucose 88 Calcium 8.4 L Phosphorus 4.0 Magnesium 2.0 Total Bilirubin 0.5 AST 28 ALT 26 Alkaline Phosphatase 94 Troponin I < 0.02 B-Natriuretic Peptide 704.1 H Total Protein 6.1 L Albumin 2.5 L TSH SARS-CoV-2 Ab Interp 11/28/19 11/28/19 11/28/19 19:35 19:35 19:35 WBC RBC Hgb Hct MCV MCH MCHC RDW Plt Count MPV Absolute Neuts (auto) Neutrophils % Lymphocytes % Monocytes % Eosinophils % Basophils % Nucleated RBC % PT with INR INR PTT (Actin FS) 41.6 H D-Dimer 1834 H Sodium Potassium Chloride Carbon Dioxide Anion Gap BUN Creatinine Est GFR (CKD-EPI)AfAm Est GFR (CKD-EPI)NonAf POC Glucometer Random Glucose Calcium Phosphorus Magnesium Total Bilirubin AST ALT Alkaline Phosphatase Troponin I < 0.02 B-Natriuretic Peptide Total Protein Albumin TSH 1.06 SARS-CoV-2 Ab Interp 11/29/19 11/29/19 11/29/19 06:42 06:42 06:42 WBC 9.9 RBC 3.96 Hgb 11.3 Hct 33.9 MCV 85.7 MCH 28.6 MCHC 33.4 RDW 14.1 Plt Count 139 MPV 10.7 Absolute Neuts (auto) 7.6 Neutrophils % 76.5 Lymphocytes % 18.0 D Monocytes % 4.4 Eosinophils % 0.7 Basophils % 0.4 Nucleated RBC % 0 PT with INR INR PTT (Actin FS) 38.9 H D-Dimer Sodium 140 Potassium 3.6 Chloride 106 Carbon Dioxide 26 Anion Gap 8 BUN 12.3 Creatinine 0.7 Est GFR (CKD-EPI)AfAm 134.75 Est GFR (CKD-EPI)NonAf 116.26 POC Glucometer Random Glucose 83 Calcium 8.4 L Phosphorus 4.1 Magnesium 2.1 Total Bilirubin 0.9 AST 46 H ALT 54 Alkaline Phosphatase 90 Troponin I B-Natriuretic Peptide Total Protein 5.8 L Albumin 2.5 L TSH SARS-CoV-2 Ab Interp 11/29/19 11/29/19 11/29/19 06:42 11:54 15:30 WBC RBC Hgb Hct MCV MCH MCHC RDW Plt Count MPV Absolute Neuts (auto) Neutrophils % Lymphocytes % Monocytes % Eosinophils % Basophils % Nucleated RBC % PT with INR INR PTT (Actin FS) 27.0 D-Dimer Sodium Potassium Chloride Carbon Dioxide Anion Gap BUN Creatinine Est GFR (CKD-EPI)AfAm Est GFR (CKD-EPI)NonAf POC Glucometer 84 Random Glucose Calcium Phosphorus Magnesium Total Bilirubin AST ALT Alkaline Phosphatase Troponin I B-Natriuretic Peptide Total Protein Albumin TSH SARS-CoV-2 Ab Interp Non-reactive 11/29/19 11/30/19 11/30/19 21:52 05:28 05:44 WBC 7.9 RBC 4.05 Hgb 11.6 Hct 34.9 MCV 86.2 MCH 28.6 MCHC 33.1 RDW 14.2 Plt Count 166 MPV 9.7 Absolute Neuts (auto) Neutrophils % Lymphocytes % Monocytes % Eosinophils % Basophils % Nucleated RBC % PT with INR INR PTT (Actin FS) D-Dimer Sodium Potassium Chloride Carbon Dioxide Anion Gap BUN Creatinine Est GFR (CKD-EPI)AfAm Est GFR (CKD-EPI)NonAf POC Glucometer 102 86 Random Glucose Calcium Phosphorus Magnesium Total Bilirubin AST ALT Alkaline Phosphatase Troponin I B-Natriuretic Peptide Total Protein Albumin TSH SARS-CoV-2 Ab Interp 11/30/19 11/30/19 05:44 05:44 WBC RBC Hgb Hct MCV MCH MCHC RDW Plt Count MPV Absolute Neuts (auto) Neutrophils % Lymphocytes % Monocytes % Eosinophils % Basophils % Nucleated RBC % PT with INR INR PTT (Actin FS) 26.0 D-Dimer Sodium 139 Potassium 3.7 Chloride 106 Carbon Dioxide 25 Anion Gap 8 BUN 17.8 Creatinine 0.8 Est GFR (CKD-EPI)AfAm 114.66 Est GFR (CKD-EPI)NonAf 98.93 POC Glucometer Random Glucose 87 Calcium 8.9 Phosphorus 4.7 Magnesium 2.1 Total Bilirubin AST ALT Alkaline Phosphatase Troponin I B-Natriuretic Peptide 155.1 H Total Protein Albumin TSH SARS-CoV-2 Ab Interp CXR 11/27 Impression: Weak inspiration. Diffuse airspace changes suggestive of pulmonary edema with questionable superimposed infiltrates. CXR 11/29 Impression: Marked improvement. ECHOCARDIOGRAM 11/29 LV: mildly dilated, severe global hypokinesia, EF about 20%, grade III diastolic dysfunction, elevated EDP/LAP RV: normal LA: severely dilated, bulging, interatrian septum to right suggestive of elevated LAP MV: Tethered with mild MR Pericardium: small effusion HOSPITAL COURSE: Patient is a 29 yo F who presented to the ED s/p 3 days prior, with SOB, orthopnea, and BL leg swelling for 1 day. Patient was admitted to r/o PE, and workup for possibly peripartum CHF/Cardiomyopathy. BL Venous doppler was negative for DVT. CXR results noted above. CTA chest showed: Bilateral pleural effusions. Bilateral alveolar consolidation suggestive of pulmonary vascular congestion. Although cannot exclude infiltrates. Patient was started on lasixs with marked improvement. Echo confirmed peripartum cardiomyopathy. Patient was discharged on metoprolol, enalapril, & Lasix. She was advised to not use her breast milk to feed her while on her medications. Patient was also strongly advised to have close followup with chair car driver after discharge. Dr. Rhodes spoke with chief at [facility], and they will see patient in office next week (they will call her for appt). Date of Admission:11/28/19 Date of Discharge: 11/30/19 Minutes to complete discharge: 39 Discharge Summary Problems reviewed: Yes Reason For Visit: PERIPARTUM CARDIOMYOPATHY Current Active Problems Peripartum cardiomyopathy (Acute) SOB (shortness of breath) (Acute) Condition: Stable - Instructions Diet, Activity, Other Instructions: You came into the hospital for trouble breathing. You had a cat-scan of your chest which shows fluid around your lungs, you were treated with diuretics. You were evaluated by Pulmonology, Cardiology. You had an echo showing peripartum c ardiomyopathy which is a weakness of your heart muscles. You need to maintain close follow up with your chair car driver after being discharged. You should have a repeat echo within 2-3 months. You will not be able to feed your your breast milk due to medications we are starting. Please pump and dump your breast milk especially when you are on Enalapril. Medications Please continue your home vitamins as prescribed You are being discharged on new medications: Lasixs 40 mg once a day Enalapril 2.5 twice a day Metoprolol Succinate 25 once a day Because of your medications, you will not be able to feed your any of your breast milk. also have one banana daily. to maintain your potassium [facility] will be calling you for appointment in Cardiology office next week. Make sure you keep this appointment and maintain close followup with your chair car driver. Please follow up with your primary care physician, Dr. Murillo Please follow up with your POKER PROP PLAYER Please follow up with your Air Traffic Control Manager If you have new, worsening, or concerning symptoms please return to the ED or call 911. Referrals: Georgiana Murillo MD [Primary Care Provider] - Jef Perez MD [Staff Physician] - Ted Culver MD [Staff Physician] - Disposition: HOME - Home Medications Comprehensive Discharge Medication List: Ambulatory Orders Vitamins (Sjr) - 1 tab PO DAILY 11/25/19 Enalapril Maleate 2.5 mg PO BID 30 Days #60 tablet 11/30/19 Furosemide [Lasix] 40 mg PO DAILY 30 Days #30 tablet 11/30/19 Metoprolol Succinate 25 mg PO DAILY 30 Days #30 tab.er.24h 11/30/19 This patient is new to me today: No Emergency Visit: Yes ED Registration Date: 11/28/19 Care time: The patient presented to the Emergency Department on the above date and was hospitalized for further evaluation of their emergent condition. Critical Care patient: No - Discharge Referral Referred to [facility] Med P.C.: No ATTENDING PHYSICIAN STATEMENT I saw and evaluated the patient. I reviewed the resident's note and discussed the case with the resident. I agree with the resident's findings and plan as documented. SUBJECTIVE: OBJECTIVE: ASSESSMENT AND PLAN:
== END 2019-11-30 15:58 | disposition home or self-care (01) | DRG 561 ==
LOC: JER 11:58 → JERBED 15:21 → J4W 18:44
PROVIDERS: ADMIT Student in an Organized Health Care Education/Training Program; ATTEND Internal Medicine
DX: O90.3 Peripartum cardiomyopathy (principal); R00.0 Tachycardia, unspecified; R09.89 Other specified symptoms and signs involving the circulatory and respiratory systems; I50.21 Acute systolic (congestive) heart failure; J81.0 Acute pulmonary edema
CPT/HCPCS: 36415; 71045-TC-FY; 71275-TC; 80048; 80053; 82962; 83735; 83880; 84100; 84443; 84484; 85025; 85027; 85379; 85610; 85730; 86769; 93005; 93010; 93306-TC; 93970-TC; 99285-25; J0131; J1644; Q9967; U0003